=== PATIENT | male | born 1985 | race Two or more races ===

== ENCOUNTER 2019-02-03 17:04 | Inpatient (IN) | payer SELFPAY ==
[2019-02-03] VITALS (15 sets, daily range): BP systolic 55–93; BP diastolic 24–49
[~2019-02-03] VITALS: Ht 172.7 cm; Wt 87.1 kg
[2019-02-03] MEDS ORDERED: IV NORMAL SALINE 1000ML BAG 1,000 ML IV SCH (17:10)
--- NOTE | 2019-02-03 17:17 | PHYS DOC ---
Past Medical History Additional Information: unknown (LASHELL FAGAN APRN) Adult General HPI HPI Patient is a 33 year old male who presents to the ER with overdose. Patient was trying to commit suicide due to a divorce and custody garg that is ongoing. Per EMS brother witnessed the overdose and states that he took approximately 30 pills in half a bottle of NyQuil extra strength. The pills he took include hydroxyzine, lisinopril, carvedilol. This occurred approximately 1.5 hours ago. (LASHELL FAGAN APRN) Review of Systems Review of Systems Unable to obtain due to patient condition. (LASHELL FAGAN APRN) Current Medications Current Medications Current Medications Medications (Trade) Dose Ordered Sig/Pierre Start Time Stop Time Status Last Admin Dose Admin Calcium Gluconate (Calcium Gluconate) 1,000 mg 1X ONCE 02/03/19 18:45 02/03/19 18:46 DC 02/03/19 19:19 1,000 MG Dextrose (Dextrose 50%-Water Syringe) 100 gm 1X ONCE 02/03/19 18:30 02/03/19 18:31 DC 02/03/19 18:37 100 GM Dextrose/Sodium Chloride 1,000 ml @ 100 mls/hr 1X ONCE 02/03/19 18:45 02/04/19 04:44 02/03/19 19:41 100 MLS/HR Glucagon (Glucagen) 5 mg 1X ONCE 02/03/19 18:00 02/03/19 18:01 DC 02/03/19 18:02 5 MG Glucagon 5 mg/ Sodium Chloride 105 ml @ 100 mls/hr 1X ONCE 02/03/19 18:30 02/03/19 19:32 DC 02/03/19 18:30 100 MLS/HR Insulin Human Regular 150 ml @ 0 mls/hr 1X ONCE 02/03/19 18:30 02/03/19 18:31 DC 02/03/19 19:05 8 MLS/HR Insulin Human Regular (HumuLIN R VIAL) 83 unit 1X ONCE 02/03/19 18:30 02/03/19 18:31 DC 02/03/19 18:48 83 UNIT Naloxone HCl (Narcan) 0.4 mg 1X ONCE 02/03/19 18:45 02/03/19 18:46 DC Sodium Chloride 1,000 ml @ 1,000 mls/hr 1X ONCE 02/03/19 18:15 02/03/19 19:14 DC 02/03/19 18:16 1,000 MLS/HR (SHAMIR REESE MD) Allergies Allergies Allergies Coded Allergies Type Severity Reaction Last Updated Verified No Known Drug Allergies 02/03/19 No (SHAMIR REESE MD) Physical Exam Physical Exam Constitutional: acute distress, toxic appearance. [] HENT: Normocephalic, atraumatic, bilateral external ears normal, oropharynx moist, no oral exudates, nose normal. [] Eyes: PERRLA, EOMI, conjunctiva normal, no discharge. Pupils are 1 bilaterally. Neck: Normal range of motion, no tenderness, supple, no stridor. [] Cardiovascular:Heart rate regular rhythm, no murmur [] Lungs & Thorax: Bilateral breath sounds clear to auscultation [] Abdomen: Bowel sounds normal, soft, no tenderness, no masses, no pulsatile masses. [] Skin: Warm, dry, no erythema, no rash. [] Back: No tenderness, no CVA tenderness. [] Extremities: No tenderness, no cyanosis, no clubbing, ROM intact, no edema. [] Neurologic: GSC 14, lethargic Psychologic: Affect sleepy, judgement reduced (LASHELL FAGAN APRN) Current Patient Data Vital Signs Vital Signs Date Time Temp Pulse Resp B/P (MAP) Pulse Ox O2 Delivery O2 Flow Rate FiO2 02/03/19 17:05 98.1 59 14 83/48 (60) 97 Room Air 98.1 (SHAMIR REESE MD) Lab Values Laboratory Tests Test 02/03/19 17:10 02/03/19 17:25 02/03/19 17:59 02/03/19 18:38 White Blood Count 7.1 x10^3/uL (4.0-11.0) Red Blood Count 4.13 x10^6/uL (4.30-5.70) L Hemoglobin 12.7 g/dL (13.0-17.5) L Hematocrit 37.3 % (39.0-53.0) L Mean Corpuscular Volume 90 fL (79-100) Mean Corpuscular Hemoglobin 31 pg (25-35) Mean Corpuscular Hemoglobin Concent 34 g/dL (31-37) Red Cell Distribution Width 13.0 % (11.5-14.5) Platelet Count 197 x10^3/uL (140-400) Neutrophils (%) (Auto) 60 % (31-73) Lymphocytes (%) (Auto) 31 % (24-48) Monocytes (%) (Auto) 8 % (0-9) Eosinophils (%) (Auto) 1 % (0-3) Basophils (%) (Auto) 1 % (0-3) Neutrophils # (Auto) 4.2 x10^3uL (1.8-7.7) Lymphocytes # (Auto) 2.2 x10^3/uL (1.0-4.8) Monocytes # (Auto) 0.5 x10^3/uL (0.0-1.1) Eosinophils # (Auto) 0.1 x10^3/uL (0.0-0.7) Basophils # (Auto) 0.0 x10^3/uL (0.0-0.2) Prothrombin Time 14.2 SEC (11.7-14.0) H Prothrombin Time INR 1.1 (0.8-1.1) PTT 32 SEC (24-38) Sodium Level 140 mmol/L (136-145) Potassium Level 3.8 mmol/L (3.5-5.1) Chloride Level 106 mmol/L (98-107) Carbon Dioxide Level 23 mmol/L (21-32) Anion Gap 11 (6-14) Blood Urea Nitrogen 19 mg/dL (8-26) Creatinine 1.3 mg/dL (0.7-1.3) Estimated GFR (Cockcroft-Gault) 63.6 BUN/Creatinine Ratio 15 (6-20) Glucose Level 178 mg/dL (70-99) H Calcium Level 8.6 mg/dL (8.5-10.1) Magnesium Level 2.1 mg/dL (1.8-2.4) Total Bilirubin 0.8 mg/dL (0.2-1.0) Aspartate Amino Transferase (AST) 32 U/L (15-37) Alanine Aminotransferase (ALT) 28 U/L (16-63) Alkaline Phosphatase 52 U/L (46-116) Total Protein 6.6 g/dL (6.4-8.2) Albumin 3.9 g/dL (3.4-5.0) Albumin/Globulin Ratio 1.4 (1.0-1.7) Lipase 106 U/L (73-393) Salicylates Level < 2.8 mg/dL (2.8-20.0) L Salicylate Last Dose Date Unk Salicylate Last Dose Time Unk Acetaminophen Level 14.68 mcg/ml (10-30) Acetaminophen Last Dose Date Unk Acetaminophen Last Dose Time Unk Ethyl Alcohol Level < 10 mg/dL (0-10) Urine Color Yellow Urine Clarity Clear Urine pH 5.5 Urine Specific [place] >=1.030 Urine Protein Negative mg/dL (NEG-TRACE) Urine Glucose (UA) Negative mg/dL (NEG) Urine Ketones (Stick) >=80 mg/dL (NEG) Urine Blood Negative (NEG) Urine Nitrite Negative (NEG) Urine Bilirubin Small (NEG) Urine Urobilinogen Dipstick 0.2 mg/dL (0.2 mg/dL) Urine Leukocyte Esterase Negative (NEG) Urine RBC 0 /HPF (0-2) Urine WBC 1-4 /HPF (0-4) Urine Squamous Epithelial Cells Occ /LPF Urine Bacteria 0 /HPF (0-FEW) Urine Mucus Mod /LPF Urine Opiates Screen Neg (NEG) Urine Methadone Screen Neg (NEG) Urine Barbiturates Neg (NEG) Urine Phencyclidine Screen Neg (NEG) Urine Amphetamine/Methamphetamine Pos (NEG) Urine Benzodiazepines Screen Neg (NEG) Urine Cocaine Screen Neg (NEG) Urine Cannabinoids Screen Neg (NEG) Urine Ethyl Alcohol Neg (NEG) Glucose (Fingerstick) 143 mg/dL (70-99) H 159 mg/dL (70-99) H Test 02/03/19 18:52 Glucose (Fingerstick) 508 mg/dL (70-99) *H Laboratory Tests 02/03/19 17:10 Laboratory Tests 02/03/19 17:10 (SHAMIR REESE MD) Lab Values Laboratory Tests Test 02/03/19 17:10 02/03/19 17:25 02/03/19 17:59 White Blood Count 7.1 x10^3/uL (4.0-11.0) Red Blood Count 4.13 x10^6/uL (4.30-5.70) L Hemoglobin 12.7 g/dL (13.0-17.5) L Hematocrit 37.3 % (39.0-53.0) L Mean Corpuscular Volume 90 fL (79-100) Mean Corpuscular Hemoglobin 31 pg (25-35) Mean Corpuscular Hemoglobin Concent 34 g/dL (31-37) Red Cell Distribution Width 13.0 % (11.5-14.5) Platelet Count 197 x10^3/uL (140-400) Neutrophils (%) (Auto) 60 % (31-73) Lymphocytes (%) (Auto) 31 % (24-48) Monocytes (%) (Auto) 8 % (0-9) Eosinophils (%) (Auto) 1 % (0-3) Basophils (%) (Auto) 1 % (0-3) Neutrophils # (Auto) 4.2 x10^3uL (1.8-7.7) Lymphocytes # (Auto) 2.2 x10^3/uL (1.0-4.8) Monocytes # (Auto) 0.5 x10^3/uL (0.0-1.1) Eosinophils # (Auto) 0.1 x10^3/uL (0.0-0.7) Basophils # (Auto) 0.0 x10^3/uL (0.0-0.2) Prothrombin Time 14.2 SEC (11.7-14.0) H Prothrombin Time INR 1.1 (0.8-1.1) PTT 32 SEC (24-38) Sodium Level 140 mmol/L (136-145) Potassium Level 3.8 mmol/L (3.5-5.1) Chloride Level 106 mmol/L (98-107) Carbon Dioxide Level 23 mmol/L (21-32) Anion Gap 11 (6-14) Blood Urea Nitrogen 19 mg/dL (8-26) Creatinine 1.3 mg/dL (0.7-1.3) Estimated GFR (Cockcroft-Gault) 63.6 BUN/Creatinine Ratio 15 (6-20) Glucose Level 178 mg/dL (70-99) H Calcium Level 8.6 mg/dL (8.5-10.1) Magnesium Level 2.1 mg/dL (1.8-2.4) Total Bilirubin 0.8 mg/dL (0.2-1.0) Aspartate Amino Transferase (AST) 32 U/L (15-37) Alanine Aminotransferase (ALT) 28 U/L (16-63) Alkaline Phosphatase 52 U/L (46-116) Total Protein 6.6 g/dL (6.4-8.2) Albumin 3.9 g/dL (3.4-5.0) Albumin/Globulin Ratio 1.4 (1.0-1.7) Lipase 106 U/L (73-393) Salicylates Level < 2.8 mg/dL (2.8-20.0) L Salicylate Last Dose Date Unk Salicylate Last Dose Time Unk Acetaminophen Level 14.68 mcg/ml (10-30) Acetaminophen Last Dose Date Unk Acetaminophen Last Dose Time Unk Ethyl Alcohol Level < 10 mg/dL (0-10) Urine Color Yellow Urine Clarity Clear Urine pH 5.5 Urine Specific [place] >=1.030 Urine Protein Negative mg/dL (NEG-TRACE) Urine Glucose (UA) Negative mg/dL (NEG) Urine Ketones (Stick) >=80 mg/dL (NEG) Urine Blood Negative (NEG) Urine Nitrite Negative (NEG) Urine Bilirubin Small (NEG) Urine Urobilinogen Dipstick 0.2 mg/dL (0.2 mg/dL) Urine Leukocyte Esterase Negative (NEG) Urine RBC 0 /HPF (0-2) Urine WBC 1-4 /HPF (0-4) Urine Squamous Epithelial Cells Occ /LPF Urine Bacteria 0 /HPF (0-FEW) Urine Mucus Mod /LPF Urine Opiates Screen Neg (NEG) Urine Methadone Screen Neg (NEG) Urine Barbiturates Neg (NEG) Urine Phencyclidine Screen Neg (NEG) Urine Amphetamine/Methamphetamine Pos (NEG) Urine Benzodiazepines Screen Neg (NEG) Urine Cocaine Screen Neg (NEG) Urine Cannabinoids Screen Neg (NEG) Urine Ethyl Alcohol Neg (NEG) Glucose (Fingerstick) 143 mg/dL (70-99) H Laboratory Tests 02/03/19 17:10 Laboratory Tests 02/03/19 17:10 (LASHELL FAGAN APRN) EKG EKG EKG interpreted by Dr. Hines Sinus at 68, NO STEMI, QRS 90 ms QT's at 390 ms[] 2nd EKG interpreted by Dr. Reese Sinus at 65, NO STEMI, QRS 94 QTc at 459. (LASHELL FAGAN APRN) Radiology/Procedures Radiology/Procedures [] (LASHELL FAGAN APRN) Course & Med Decision Making Course & Med Decision Making Pertinent Labs and Imaging studies reviewed. (See chart for details) Will get labs, call poison control, gives fluids to treat hypotension. 1725: Called Poison Control and they are faxing recommendations. Will get Q4 hour tylenol and Q2 hour EKG. Per recommendation will order glucagon for hypotension. Glucagon did not improve blood pressure. Ordered glucagon drip and then insulin bolus as well as insulin drip. Also order Dextrose as well as D5 drip. Ordered Narcan and Calcium Gluconate. Patient blood pressure has improved from the low 70's systolic to high 80's patient is more alert with treatment. Talked to Dr. Brandon who agreed to admit to ICU. Critical care time of 2 hours. (LASHELL FAGAN APRN) Course & Med Decision Making 33 y/o M presents for overdose. I saw and evaluated the pt. His mental status has improved since arrival. BP has improved to 90 systolic with fluids, insulin, dextrose, calcium. Admit to ICU. (SHAMIR REESE MD) Dragon Disclaimer Dragon Disclaimer This electronic medical record was generated, in whole or in part, using a voice recognition dictation system. (LASHELL FAGAN APRN) Departure Departure Impression: Primary Impression: Overdose Additional Impression: Suicidal ideation Disposition: ADMITTED INPATIENT Admitting Physician: Other (pito) (LASHELL FAGAN APRN) Condition: CRITICAL Referrals: NON,STAFF (PCP) Problem Qualifiers Primary Impression: Overdose Encounter type: initial encounter Injury intent: intentional self-harm Qualified Codes: T50.902A - Poisoning by unspecified drugs, medicaments and biological substances, intentional self-harm, initial encounter LASHELL FAGAN APRN February 03, 2019 17:17 SHAMIR REESE MD February 03, 2019 21:00
[2019-02-03 17:19] LABS: BASO % 1 % (0-3); EOS # 0.1 x10^3/uL (0.0-0.7); EOS % 1 % (0-3); HEMATOCRIT 37.3 % (39.0-53.0); HEMOGLOBIN 12.7 g/dL (13.0-17.5); LYMPH # 2.2 x10^3/uL (1.0-4.8); LYMPH % 31 % (24-48); MEAN CORPUSCULAR HEMOGLOBIN 31 pg (25-35); MEAN CORPUSCULAR HGB CONC 34 g/dL (31-37); MEAN CORPUSCULAR VOLUME 90 fL (79-100); MONO # 0.5 x10^3/uL (0.0-1.1); MONO % 8 % (0-9); NEUT # 4.2 x10^3uL (1.8-7.7); NEUT % 60 % (31-73); PLATELET COUNT 197 x10^3/uL (140-400); RED BLOOD COUNT 4.13 x10^6/uL (4.30-5.70); WHITE BLOOD COUNT 7.1 x10^3/uL (4.0-11.0)
[2019-02-03 17:29] LABS: PROTHROMBIN TIME PATIENT 14.2 SEC (11.7-14.0)
[2019-02-03 17:31] LABS: CALCIUM 8.6 mg/dL (8.5-10.1); CREATININE 1.3 mg/dL (0.7-1.3); GFR 63.6; POTASSIUM 3.8 mmol/L (3.5-5.1)
[2019-02-03 17:35] LABS: ACETAMIN 14.68 mcg/ml (10-30); SALIC < 2.8 mg/dL (2.8-20.0)
[2019-02-03 17:36] LABS: ALBUMIN 3.9 g/dL (3.4-5.0); ALBUMIN/GLOBULIN RATIO 1.4 (1.0-1.7); MAGNESIUM 2.1 mg/dL (1.8-2.4); TOTAL BILIRUBIN 0.8 mg/dL (0.2-1.0); TOTAL PROTEIN 6.6 g/dL (6.4-8.2)
[2019-02-03] MEDS ORDERED: IV NORMAL SALINE 1000ML BAG 1,000 ML IV ONE ×4 (17:45→21:15)
[2019-02-03] MEDS ORDERED: GLUCAGON,HUMAN RECOMBINANT 1 MG/ML VIAL. IV ONE (18:00)
[2019-02-03] MEDS ORDERED: GLUCAGON HUMAN RECOMBINANT IM ONE (18:30)
[2019-02-03] MEDS ORDERED: INSULIN REGULAR 100 UNIT/ML 3ML VIAL. IV ONE (18:30)
[2019-02-03] MEDS ORDERED: NORMAL SALINE IM ONE (18:30)
[2019-02-03] MEDS ORDERED: NORMAL SALINE IV ONE (18:30)
[2019-02-03] MEDS ORDERED: DEXTROSE 50% 25 GM / 50ML DISP.SYRIN. IV ONE (18:30)
[2019-02-03] MEDS ORDERED: INSULIN,REGULAR 150 UNIT DRIP 150 ML IV ONE (18:30)
[2019-02-03] MEDS ORDERED: GLUCAGON HUMAN RECOMBINANT IV ONE (18:30)
[2019-02-03 18:38] LABS: BILIRUBIN,URINE SMALL (NEG); CLARITY,URINE CLEAR; COLOR,URINE YELLOW; NITRITE,URINE NEGATIVE (NEG); PH,URINE 5.5; PROTEIN,URINE NEGATIVE (NEG-TRACE); UROBILINOGEN,URINE 0.2 mg/dL (0.2 mg/dL)
[2019-02-03] MEDS ORDERED: CALCIUM GLUCONATE 1,000 MG/10 ML VIAL. IVP ONE (18:45)
[2019-02-03] MEDS ORDERED: NALOXONE 0.4 MG/ML VIAL. IV ONE (18:45)
[2019-02-03] MEDS ORDERED: IV DEXTROSE 5% - 0.9 % NACL 1,000 ML IV ONE (18:45)
[2019-02-03 18:53] LABS: BACTERIA,URINE 0 /HPF (0-FEW); RBC,URINE 0 /HPF (0-2); SQUAMOUS EPITHELIAL CELL,UR OCC /LPF
[2019-02-03 19:57] LABS: AMPHETAMINE/METHAMPHETAMINE POS (NEG); BARBITURATES NEG (NEG); BENZODIAZEPINES NEG (NEG); CANNABINOIDS NEG (NEG); COCAINE NEG (NEG); METHADONE NEG (NEG); OPIATES NEG (NEG); PHENCYCLIDINE NEG (NEG)
[2019-02-03 19:59] LABS: ACETAMIN 13.44 mcg/ml (10-30)
[2019-02-03] MEDS: DEXTROSE 50% 25 GM / 50ML DISP.SYRIN. IV PRN ×2 (21:29→22:55)
[2019-02-03] MEDS ORDERED: ALBUTEROL SULFATE 2.5 MG/3 ML NEBU. NEB PRN (21:30)
--- NOTE | 2019-02-03 21:33 | NUR ---
Pt.arrived to ICU via bed from ED w/ SI and drug overdose. He is A/O and will make needs known. Slightly agitated. Mom and sister @ BS.
--- NOTE | 2019-02-03 21:36 | NUR ---
Around 2114 pt had a glucose of 21. D50 given per protocol and it went up to [address] Brandon notified and gave new orders to stop insulin for 1 hr.
--- NOTE | 2019-02-03 22:02 | PDOC1 ---
History and Physical Date of Admission Date of Admission DATE: 02/03/19 TIME: 22:01 Identification/Chief Complaint Chief Complaint SEEN IN ICU Patient is a 33 year old male who presents to the ER with overdose. Patient was trying to commit suicide due to a divorce and custody garg that is ongoing. Per EMS brother witnessed the overdose and states that he took approximately 30 pills in half a bottle of NyQuil extra strength. The pills he took include hydroxyzine, lisinopril, carvedilol. This occurred approximately 3.5 hours AGO HE IS ADMITTED TO ICU ON PRESSORS, has hx meth abuse Past Medical History Cardiovascular: HTN GI: No pertinent hx Infectious disease: No pertinent hx Renal/: No pertinent hx Family History Family History: Hypertension Social History Smoke: <1 pack per day ALCOHOL: social Drugs: None, Crystal meth Current Medications Current Medications Current Medications Sodium Chloride 1,000 ml @ 100 mls/hr Q10H IV Last administered on 02/03/19at 17:12; Start 02/03/19 at 17:10; Stop 02/04/19 at 03:09 Sodium Chloride 1,000 ml @ 1,000 mls/hr 1X ONCE IV Last administered on 02/03/19at 18:02; Start 02/03/19 at 17:45; Stop 02/03/19 at 18:44; Status DC Glucagon (Glucagen) 5 mg 1X ONCE IV Last administered on 02/03/19at 18:02; Start 02/03/19 at 18:00; Stop 02/03/19 at 18:01; Status DC Sodium Chloride 1,000 ml @ 1,000 mls/hr 1X ONCE IV Last administered on 02/03/19at 18:03; Start 02/03/19 at 18:00; Stop 02/03/19 at 18:59; Status DC Sodium Chloride 1,000 ml @ 1,000 mls/hr 1X ONCE IV Last administered on 02/03/19at 18:16; Start 02/03/19 at 18:15; Stop 02/03/19 at 19:14; Status DC Glucagon 5 mg/ Sodium Chloride 105 ml @ 100 mls/hr 1X ONCE IM ; Start 02/03/19 at 18:30; Stop 02/03/19 at 19:32; Status Cancel Dextrose (Dextrose 50%-Water Syringe) 100 gm 1X ONCE IV Last administered on 02/03/19 18:37; Start 02/03/19 at 18:30; Stop 02/03/19 at 18:31; Status DC Insulin Human Regular (HumuLIN R VIAL) 83 unit 1X ONCE IV Last administered on 02/03/19 18:48; Start 02/03/19 at 18:30; Stop 02/03/19 at 18:31; Status DC Insulin Human Regular 150 ml @ 0 mls/hr 1X ONCE IV Last administered on 02/03/19at 19:05; Start 02/03/19 at 18:30; Stop 02/03/19 at 18:31; Status DC Glucagon 5 mg/ Sodium Chloride 105 ml @ 100 mls/hr 1X ONCE IV Last administered on 02/03/19 18:30; Start 02/03/19 at 18:30; Stop 02/03/19 at 19:32; Status DC Naloxone HCl (Narcan) 0.4 mg 1X ONCE IV ; Start 02/03/19 at 18:45; Stop 02/03/19 at 18:46; Status DC Calcium Gluconate (Calcium Gluconate) 1,000 mg 1X ONCE IVP Last administered on 02/03/19 19:19; Start 02/03/19 at 18:45; Stop 02/03/19 at 18:46; Status DC Dextrose/Sodium Chloride 1,000 ml @ 100 mls/hr 1X ONCE IV Last administered on 02/03/19at 19:41; Start 02/03/19 at 18:45; Stop 02/04/19 at 04:44 Sodium Chloride 1,000 ml @ 1,000 mls/hr 1X ONCE IV Last administered on 02/03/19at 21:29; Start 02/03/19 at 21:15; Stop 02/03/19 at 22:14 Dextrose (Dextrose 50%-Water Syringe) 12.5 gm PRN Q15MIN PRN IV SEE COMMENTS Last administered on 02/03/19at 21:29; Start 02/03/19 at 21:30 Albuterol Sulfate (Ventolin Neb Soln) 2.5 mg PRN Q4HRS PRN NEB BRADYCARDIA/HYPOTENSION Last administered on 02/03/19at 21:45; Start 02/03/19 at 21:30 Albuterol Sulfate (Ventolin Neb Soln) 2.5 mg Q4HRS NEB ; Start 02/04/19 at 22:00 Dopamine HCl/ Dextrose 250 ml @ 6.272 mls/ hr CONT PRN IV SEE I/O RECORD Last administered on 02/03/19at 21:56; Start 02/03/19 at 21:30 Allergies Allergies: Coded Allergies: No Known Drug Allergies (Unverified , 02/03/19) ROS Review of System UNABLE TO OBTAIN Neurological: Yes Confusion Physical Exam Physical Exam Physical Exam Physical Exam Constitutional: acute distress, toxic appearance. LETHARGIC [] HENT: Normocephalic, atraumatic, bilateral external ears normal, oropharynx moist, no oral exudates, nose normal. [] Eyes: PERRLA, EOMI, conjunctiva normal, no discharge. Pupils are 1 bilaterally. Neck: Normal range of motion, no tenderness, supple, no stridor. [] Cardiovascular:Heart rate regular rhythm, no murmur [] Lungs & Thorax: Bilateral breath sounds clear to auscultation [] Abdomen: Bowel sounds normal, soft, no tenderness, no masses, no pulsatile masses. [] Skin: Warm, dry, no erythema, no rash. [] Back: No tenderness, no CVA tenderness. [] Extremities: No tenderness, no cyanosis, no clubbing, ROM intact, no edema. [] Neurologic: GSC 14, lethargic Psychologic: Affect sleepy, HEENT: Atraumatic Heart: RRR Abdomen: Normal bowel sounds, Soft Rectal Exam: not examined Extremities: No clubbing, No cyanosis, No edema Skin: No rashes, No breakdown Neuro: Cranial nerves 3-12 NL Vitals Vitals Vital Signs Date Time Temp Pulse Resp B/P (MAP) Pulse Ox O2 Delivery O2 Flow Rate FiO2 02/03/19 21:45 95 Room Air 02/03/19 17:05 98.1 59 14 83/48 (60) 98.1 Labs Labs Laboratory Tests Test 02/03/19 17:10 02/03/19 17:25 02/03/19 17:59 02/03/19 18:38 White Blood Count 7.1 x10^3/uL (4.0-11.0) Red Blood Count 4.13 x10^6/uL (4.30-5.70) Hemoglobin 12.7 g/dL (13.0-17.5) Hematocrit 37.3 % (39.0-53.0) Mean Corpuscular Volume 90 fL (79-100) Mean Corpuscular Hemoglobin 31 pg (25-35) Mean Corpuscular Hemoglobin Concent 34 g/dL (31-37) Red Cell Distribution Width 13.0 % (11.5-14.5) Platelet Count 197 x10^3/uL (140-400) Neutrophils (%) (Auto) 60 % (31-73) Lymphocytes (%) (Auto) 31 % (24-48) Monocytes (%) (Auto) 8 % (0-9) Eosinophils (%) (Auto) 1 % (0-3) Basophils (%) (Auto) 1 % (0-3) Neutrophils # (Auto) 4.2 x10^3uL (1.8-7.7) Lymphocytes # (Auto) 2.2 x10^3/uL (1.0-4.8) Monocytes # (Auto) 0.5 x10^3/uL (0.0-1.1) Eosinophils # (Auto) 0.1 x10^3/uL (0.0-0.7) Basophils # (Auto) 0.0 x10^3/uL (0.0-0.2) Prothrombin Time 14.2 SEC (11.7-14.0) Prothromb Time International Ratio 1.1 (0.8-1.1) Activated Partial Thromboplast Time 32 SEC (24-38) Sodium Level 140 mmol/L (136-145) Potassium Level 3.8 mmol/L (3.5-5.1) Chloride Level 106 mmol/L (98-107) Carbon Dioxide Level 23 mmol/L (21-32) Anion Gap 11 (6-14) Blood Urea Nitrogen 19 mg/dL (8-26) Creatinine 1.3 mg/dL (0.7-1.3) Estimated GFR (Cockcroft-Gault) 63.6 BUN/Creatinine Ratio 15 (6-20) Glucose Level 178 mg/dL (70-99) Calcium Level 8.6 mg/dL (8.5-10.1) Magnesium Level 2.1 mg/dL (1.8-2.4) Total Bilirubin 0.8 mg/dL (0.2-1.0) Aspartate Amino Transf (AST/SGOT) 32 U/L (15-37) Alanine Aminotransferase (ALT/SGPT) 28 U/L (16-63) Alkaline Phosphatase 52 U/L (46-116) Total Protein 6.6 g/dL (6.4-8.2) Albumin 3.9 g/dL (3.4-5.0) Albumin/Globulin Ratio 1.4 (1.0-1.7) Lipase 106 U/L (73-393) Salicylates Level < 2.8 mg/dL (2.8-20.0) Salicylate Last Dose Date Unk Salicylate Last Dose Time Unk Acetaminophen Level 14.68 mcg/ml (10-30) Acetaminophen Last Dose Date Unk Acetaminophen Last Dose Time Unk Ethyl Alcohol Level < 10 mg/dL (0-10) Urine Color Yellow Urine Clarity Clear Urine pH 5.5 Urine Specific [place] >=1.030 Urine Protein Negative mg/dL (NEG-TRACE) Urine Glucose (UA) Negative mg/dL (NEG) Urine Ketones (Stick) >=80 mg/dL (NEG) Urine Blood Negative (NEG) Urine Nitrite Negative (NEG) Urine Bilirubin Small (NEG) Urine Urobilinogen Dipstick 0.2 mg/dL (0.2 mg/dL) Urine Leukocyte Esterase Negative (NEG) Urine RBC 0 /HPF (0-2) Urine WBC 1-4 /HPF (0-4) Urine Squamous Epithelial Cells Occ /LPF Urine Bacteria 0 /HPF (0-FEW) Urine Mucus Mod /LPF Urine Opiates Screen Neg (NEG) Urine Methadone Screen Neg (NEG) Urine Barbiturates Neg (NEG) Urine Phencyclidine Screen Neg (NEG) Urine Amphetamine/Methamphetamine Pos (NEG) Urine Benzodiazepines Screen Neg (NEG) Urine Cocaine Screen Neg (NEG) Urine Cannabinoids Screen Neg (NEG) Urine Ethyl Alcohol Neg (NEG) Glucose (Fingerstick) 143 mg/dL (70-99) 159 mg/dL (70-99) Test 02/03/19 18:52 02/03/19 19:25 02/03/19 19:40 Glucose (Fingerstick) 508 mg/dL (70-99) 123 mg/dL (70-99) Acetaminophen Level 13.44 mcg/ml (10-30) Acetaminophen Last Dose Date Acetaminophen Last Dose Time Laboratory Tests Test 02/03/19 17:10 02/03/19 17:25 02/03/19 17:59 02/03/19 18:38 White Blood Count 7.1 x10^3/uL (4.0-11.0) Red Blood Count 4.13 x10^6/uL (4.30-5.70) Hemoglobin 12.7 g/dL (13.0-17.5) Hematocrit 37.3 % (39.0-53.0) Mean Corpuscular Volume 90 fL (79-100) Mean Corpuscular Hemoglobin 31 pg (25-35) Mean Corpuscular Hemoglobin Concent 34 g/dL (31-37) Red Cell Distribution Width 13.0 % (11.5-14.5) Platelet Count 197 x10^3/uL (140-400) Neutrophils (%) (Auto) 60 % (31-73) Lymphocytes (%) (Auto) 31 % (24-48) Monocytes (%) (Auto) 8 % (0-9) Eosinophils (%) (Auto) 1 % (0-3) Basophils (%) (Auto) 1 % (0-3) Neutrophils # (Auto) 4.2 x10^3uL (1.8-7.7) Lymphocytes # (Auto) 2.2 x10^3/uL (1.0-4.8) Monocytes # (Auto) 0.5 x10^3/uL (0.0-1.1) Eosinophils # (Auto) 0.1 x10^3/uL (0.0-0.7) Basophils # (Auto) 0.0 x10^3/uL (0.0-0.2) Prothrombin Time 14.2 SEC (11.7-14.0) Prothromb Time International Ratio 1.1 (0.8-1.1) Activated Partial Thromboplast Time 32 SEC (24-38) Sodium Level 140 mmol/L (136-145) Potassium Level 3.8 mmol/L (3.5-5.1) Chloride Level 106 mmol/L (98-107) Carbon Dioxide Level 23 mmol/L (21-32) Anion Gap 11 (6-14) Blood Urea Nitrogen 19 mg/dL (8-26) Creatinine 1.3 mg/dL (0.7-1.3) Estimated GFR (Cockcroft-Gault) 63.6 BUN/Creatinine Ratio 15 (6-20) Glucose Level 178 mg/dL (70-99) Calcium Level 8.6 mg/dL (8.5-10.1) Magnesium Level 2.1 mg/dL (1.8-2.4) Total Bilirubin 0.8 mg/dL (0.2-1.0) Aspartate Amino Transf (AST/SGOT) 32 U/L (15-37) Alanine Aminotransferase (ALT/SGPT) 28 U/L (16-63) Alkaline Phosphatase 52 U/L (46-116) Total Protein 6.6 g/dL (6.4-8.2) Albumin 3.9 g/dL (3.4-5.0) Albumin/Globulin Ratio 1.4 (1.0-1.7) Lipase 106 U/L (73-393) Salicylates Level < 2.8 mg/dL (2.8-20.0) Salicylate Last Dose Date Unk Salicylate Last Dose Time Unk Acetaminophen Level 14.68 mcg/ml (10-30) Acetaminophen Last Dose Date Unk Acetaminophen Last Dose Time Unk Ethyl Alcohol Level < 10 mg/dL (0-10) Urine Color Yellow Urine Clarity Clear Urine pH 5.5 Urine Specific [place] >=1.030 Urine Protein Negative mg/dL (NEG-TRACE) Urine Glucose (UA) Negative mg/dL (NEG) Urine Ketones (Stick) >=80 mg/dL (NEG) Urine Blood Negative (NEG) Urine Nitrite Negative (NEG) Urine Bilirubin Small (NEG) Urine Urobilinogen Dipstick 0.2 mg/dL (0.2 mg/dL) Urine Leukocyte Esterase Negative (NEG) Urine RBC 0 /HPF (0-2) Urine WBC 1-4 /HPF (0-4) Urine Squamous Epithelial Cells Occ /LPF Urine Bacteria 0 /HPF (0-FEW) Urine Mucus Mod /LPF Urine Opiates Screen Neg (NEG) Urine Methadone Screen Neg (NEG) Urine Barbiturates Neg (NEG) Urine Phencyclidine Screen Neg (NEG) Urine Amphetamine/Methamphetamine Pos (NEG) Urine Benzodiazepines Screen Neg (NEG) Urine Cocaine Screen Neg (NEG) Urine Cannabinoids Screen Neg (NEG) Urine Ethyl Alcohol Neg (NEG) Glucose (Fingerstick) 143 mg/dL (70-99) 159 mg/dL (70-99) Test 02/03/19 18:52 02/03/19 19:25 02/03/19 19:40 Glucose (Fingerstick) 508 mg/dL (70-99) 123 mg/dL (70-99) Acetaminophen Level 13.44 mcg/ml (10-30) Acetaminophen Last Dose Date Acetaminophen Last Dose Time VTE Prophylaxis Ordered VTE Prophylaxis Devices: Yes VTE Pharmacological Prophylaxi: Yes Assessment/Plan Assessment/Plan IMPRESSION 1. SUICIDE ATTEMPT 2. OVERDOSE, LIFE THREATENING, POOR PROGNOSIS 3. Acute toxic encephalopathy 4. acute shock, med induced 5. major depression 6. severe social stress 7. meth abuse PLAN ADMIT ICU BED TITRATE DOPAMINE DRIP, maintain bp > 90 CONTACTED POISON CONTROL, REC FOLLOWED CONSULT NEUROLOGY CONSULT CARDIOLOGY SERIAL TROPONIN I ECHO FLUID BOLUSES ART LINE, CENTRAL LINE STAT 115 MIN CC TIME DASH VILLEDA MD February 03, 2019 22:02
[2019-02-03] MEDS: ALBUTEROL SULFATE 2.5 MG/3 ML NEBU. NEB SCH (22:55)
[2019-02-03] MEDS ORDERED: IV DEXTROSE 10% 1,000 ML IV SCH (23:00)
[2019-02-03] MEDS ORDERED: VASOPRESSIN 40 UNIT in IV DEXTROSE 5% 100ML 100 ML IV PRN (23:00)
[2019-02-03] MEDS ORDERED: PHENYLEPHRINE INJ 20 MG in IV NORMAL SALINE 250ML 250 ML IV ONE (23:30)
[2019-02-04] VITALS (31 sets, daily range): BP systolic 92–174; BP diastolic 48–98
--- NOTE | 2019-02-04 00:02 | PDOC ---
Date and Time Called for central line and arterial line. Beta christiane overdose. HR 50 BP 70/40 unresponsive. On dopamine, vasopressin and phenylephrine. Given Glycopyrrolate with HR increase to 60's BP to 85/55. Epinephrine infusion started at 4mcg/min, phenylephrine weaned. Right External jugular 3 lumen cath placed. Mask,gown,gloves,large drape,chlorasept prep. Sutured at 17cm, biopatch and sterile dressing. Free flow all 3 ports, flushed. 20g R radial arterial line placed, sterile technique and dressing. Portable CXR- EJ line in Superior vena cava. Currently 106/65 HR 68 SpO2 100% Current Medications Current Medications Sodium Chloride 1,000 ml @ 100 mls/hr Q10H IV Last administered on 02/03/19 17:12; Start 02/03/19 at 17:10; Stop 02/04/19 at 03:09 Sodium Chloride 1,000 ml @ 1,000 mls/hr 1X ONCE IV Last administered on 02/03/19 18:02; Start 02/03/19 at 17:45; Stop 02/03/19 at 18:44; Status DC Glucagon (Glucagen) 5 mg 1X ONCE IV Last administered on 02/03/19 18:02; Start 02/03/19 at 18:00; Stop 02/03/19 at 18:01; Status DC Sodium Chloride 1,000 ml @ 1,000 mls/hr 1X ONCE IV Last administered on 02/03/19 18:03; Start 02/03/19 at 18:00; Stop 02/03/19 at 18:59; Status DC Sodium Chloride 1,000 ml @ 1,000 mls/hr 1X ONCE IV Last administered on 02/03/19at 18:16; Start 02/03/19 at 18:15; Stop 02/03/19 at 19:14; Status DC Glucagon 5 mg/ Sodium Chloride 105 ml @ 100 mls/hr 1X ONCE IM ; Start 02/03/19 at 18:30; Stop 02/03/19 at 19:32; Status Cancel Dextrose (Dextrose 50%-Water Syringe) 100 gm 1X ONCE IV Last administered on 02/03/19at 18:37; Start 02/03/19 at 18:30; Stop 02/03/19 at 18:31; Status DC Insulin Human Regular (HumuLIN R VIAL) 83 unit 1X ONCE IV Last administered on 02/03/19at 18:48; Start 02/03/19 at 18:30; Stop 02/03/19 at 18:31; Status DC Insulin Human Regular 150 ml @ 0 mls/hr 1X ONCE IV Last administered on 02/03/19at 19:05; Start 02/03/19 at 18:30; Stop 02/03/19 at 18:31; Status DC Glucagon 5 mg/ Sodium Chloride 105 ml @ 100 mls/hr 1X ONCE IV Last administered on 02/03/19at 18:30; Start 02/03/19 at 18:30; Stop 02/03/19 at 19:32; Status DC Naloxone HCl (Narcan) 0.4 mg 1X ONCE IV ; Start 02/03/19 at 18:45; Stop 02/03/19 at 18:46; Status DC Calcium Gluconate (Calcium Gluconate) 1,000 mg 1X ONCE IVP Last administered on 02/03/19at 19:19; Start 02/03/19 at 18:45; Stop 02/03/19 at 18:46; Status DC Dextrose/Sodium Chloride 1,000 ml @ 100 mls/hr 1X ONCE IV Last administered on 02/03/19at 19:41; Start 02/03/19 at 18:45; Stop 02/04/19 at 04:44 Sodium Chloride 1,000 ml @ 1,000 mls/hr 1X ONCE IV Last administered on 02/03/19at 21:29; Start 02/03/19 at 21:15; Stop 02/03/19 at 22:14; Status DC Dextrose (Dextrose 50%-Water Syringe) 12.5 gm PRN Q15MIN PRN IV SEE COMMENTS Last administered on 02/03/19at 22:55; Start 02/03/19 at 21:30 Albuterol Sulfate (Ventolin Neb Soln) 2.5 mg PRN Q4HRS PRN NEB BRADYCARDIA/HYPOTENSION Last administered on 02/03/19at 21:45; Start 02/03/19 at 21:30 Albuterol Sulfate (Ventolin Neb Soln) 2.5 mg Q4HRS NEB ; Start 02/04/19 at 22:00 Dopamine HCl/ Dextrose 250 ml @ 6.272 mls/ hr CONT PRN IV SEE I/O RECORD Last administered on 02/03/19at 21:56; Start 02/03/19 at 21:30 Dextrose 1,000 ml @ 80 mls/hr [id number] IV Last administered on 02/03/19at 23:15; Start 02/03/19 at 23:00 Vasopressin 40 unit/Dextrose 102 ml @ 6 mls/hr CONT PRN IV SEE I/O RECORD Last administered on 02/03/19at 23:10; Start 02/03/19 at 23:00 Phenylephrine HCl 20 mg/Sodium Chloride 252 ml @ 22.68 mls/ hr 1X ONCE IV Last administered on 02/03/19at 23:11; Start 02/03/19 at 23:30; Stop 02/04/19 at 10:36 Epinephrine HCl 4 mg/Sodium Chloride 254 ml @ 31.86 mls/ hr CONT PRN IV SEE I/O RECORD; Start 02/03/19 at 23:30 Pertinent Labs/Test Laboratory Tests Test 02/03/19 17:10 02/03/19 17:25 02/03/19 17:59 02/03/19 18:38 White Blood Count 7.1 x10^3/uL (4.0-11.0) Red Blood Count 4.13 x10^6/uL (4.30-5.70) Hemoglobin 12.7 g/dL (13.0-17.5) Hematocrit 37.3 % (39.0-53.0) Mean Corpuscular Volume 90 fL (79-100) Mean Corpuscular Hemoglobin 31 pg (25-35) Mean Corpuscular Hemoglobin Concent 34 g/dL (31-37) Red Cell Distribution Width 13.0 % (11.5-14.5) Platelet Count 197 x10^3/uL (140-400) Neutrophils (%) (Auto) 60 % (31-73) Lymphocytes (%) (Auto) 31 % (24-48) Monocytes (%) (Auto) 8 % (0-9) Eosinophils (%) (Auto) 1 % (0-3) Basophils (%) (Auto) 1 % (0-3) Neutrophils # (Auto) 4.2 x10^3uL (1.8-7.7) Lymphocytes # (Auto) 2.2 x10^3/uL (1.0-4.8) Monocytes # (Auto) 0.5 x10^3/uL (0.0-1.1) Eosinophils # (Auto) 0.1 x10^3/uL (0.0-0.7) Basophils # (Auto) 0.0 x10^3/uL (0.0-0.2) Prothrombin Time 14.2 SEC (11.7-14.0) Prothromb Time International Ratio 1.1 (0.8-1.1) Activated Partial Thromboplast Time 32 SEC (24-38) Sodium Level 140 mmol/L (136-145) Potassium Level 3.8 mmol/L (3.5-5.1) Chloride Level 106 mmol/L (98-107) Carbon Dioxide Level 23 mmol/L (21-32) Anion Gap 11 (6-14) Blood Urea Nitrogen 19 mg/dL (8-26) Creatinine 1.3 mg/dL (0.7-1.3) Estimated GFR (Cockcroft-Gault) 63.6 BUN/Creatinine Ratio 15 (6-20) Glucose Level 178 mg/dL (70-99) Calcium Level 8.6 mg/dL (8.5-10.1) Magnesium Level 2.1 mg/dL (1.8-2.4) Total Bilirubin 0.8 mg/dL (0.2-1.0) Aspartate Amino Transf (AST/SGOT) 32 U/L (15-37) Alanine Aminotransferase (ALT/SGPT) 28 U/L (16-63) Alkaline Phosphatase 52 U/L (46-116) Total Protein 6.6 g/dL (6.4-8.2) Albumin 3.9 g/dL (3.4-5.0) Albumin/Globulin Ratio 1.4 (1.0-1.7) Lipase 106 U/L (73-393) Salicylates Level < 2.8 mg/dL (2.8-20.0) Salicylate Last Dose Date Unk Salicylate Last Dose Time Unk Acetaminophen Level 14.68 mcg/ml (10-30) Acetaminophen Last Dose Date Unk Acetaminophen Last Dose Time Unk Ethyl Alcohol Level < 10 mg/dL (0-10) Urine Color Yellow Urine Clarity Clear Urine pH 5.5 Urine Specific [place] >=1.030 Urine Protein Negative mg/dL (NEG-TRACE) Urine Glucose (UA) Negative mg/dL (NEG) Urine Ketones (Stick) >=80 mg/dL (NEG) Urine Blood Negative (NEG) Urine Nitrite Negative (NEG) Urine Bilirubin Small (NEG) Urine Urobilinogen Dipstick 0.2 mg/dL (0.2 mg/dL) Urine Leukocyte Esterase Negative (NEG) Urine RBC 0 /HPF (0-2) Urine WBC 1-4 /HPF (0-4) Urine Squamous Epithelial Cells Occ /LPF Urine Bacteria 0 /HPF (0-FEW) Urine Mucus Mod /LPF Urine Opiates Screen Neg (NEG) Urine Methadone Screen Neg (NEG) Urine Barbiturates Neg (NEG) Urine Phencyclidine Screen Neg (NEG) Urine Amphetamine/Methamphetamine Pos (NEG) Urine Benzodiazepines Screen Neg (NEG) Urine Cocaine Screen Neg (NEG) Urine Cannabinoids Screen Neg (NEG) Urine Ethyl Alcohol Neg (NEG) Glucose (Fingerstick) 143 mg/dL (70-99) 159 mg/dL (70-99) Test 02/03/19 18:52 02/03/19 19:25 02/03/19 19:40 02/03/19 21:40 Glucose (Fingerstick) 508 mg/dL (70-99) 123 mg/dL (70-99) Acetaminophen Level 13.44 mcg/ml (10-30) Acetaminophen Last Dose Date Acetaminophen Last Dose Time Glucose Level 83 mg/dL (70-99) Laboratory Tests Test 02/03/19 17:10 02/03/19 17:25 02/03/19 17:59 02/03/19 18:38 White Blood Count 7.1 x10^3/uL (4.0-11.0) Red Blood Count 4.13 x10^6/uL (4.30-5.70) Hemoglobin 12.7 g/dL (13.0-17.5) Hematocrit 37.3 % (39.0-53.0) Mean Corpuscular Volume 90 fL (79-100) Mean Corpuscular Hemoglobin 31 pg (25-35) Mean Corpuscular Hemoglobin Concent 34 g/dL (31-37) Red Cell Distribution Width 13.0 % (11.5-14.5) Platelet Count 197 x10^3/uL (140-400) Neutrophils (%) (Auto) 60 % (31-73) Lymphocytes (%) (Auto) 31 % (24-48) Monocytes (%) (Auto) 8 % (0-9) Eosinophils (%) (Auto) 1 % (0-3) Basophils (%) (Auto) 1 % (0-3) Neutrophils # (Auto) 4.2 x10^3uL (1.8-7.7) Lymphocytes # (Auto) 2.2 x10^3/uL (1.0-4.8) Monocytes # (Auto) 0.5 x10^3/uL (0.0-1.1) Eosinophils # (Auto) 0.1 x10^3/uL (0.0-0.7) Basophils # (Auto) 0.0 x10^3/uL (0.0-0.2) Prothrombin Time 14.2 SEC (11.7-14.0) Prothromb Time International Ratio 1.1 (0.8-1.1) Activated Partial Thromboplast Time 32 SEC (24-38) Sodium Level 140 mmol/L (136-145) Potassium Level 3.8 mmol/L (3.5-5.1) Chloride Level 106 mmol/L (98-107) Carbon Dioxide Level 23 mmol/L (21-32) Anion Gap 11 (6-14) Blood Urea Nitrogen 19 mg/dL (8-26) Creatinine 1.3 mg/dL (0.7-1.3) Estimated GFR (Cockcroft-Gault) 63.6 BUN/Creatinine Ratio 15 (6-20) Glucose Level 178 mg/dL (70-99) Calcium Level 8.6 mg/dL (8.5-10.1) Magnesium Level 2.1 mg/dL (1.8-2.4) Total Bilirubin 0.8 mg/dL (0.2-1.0) Aspartate Amino Transf (AST/SGOT) 32 U/L (15-37) Alanine Aminotransferase (ALT/SGPT) 28 U/L (16-63) Alkaline Phosphatase 52 U/L (46-116) Total Protein 6.6 g/dL (6.4-8.2) Albumin 3.9 g/dL (3.4-5.0) Albumin/Globulin Ratio 1.4 (1.0-1.7) Lipase 106 U/L (73-393) Salicylates Level < 2.8 mg/dL (2.8-20.0) Salicylate Last Dose Date Unk Salicylate Last Dose Time Unk Acetaminophen Level 14.68 mcg/ml (10-30) Acetaminophen Last Dose Date Unk Acetaminophen Last Dose Time Unk Ethyl Alcohol Level < 10 mg/dL (0-10) Urine Color Yellow Urine Clarity Clear Urine pH 5.5 Urine Specific [place] >=1.030 Urine Protein Negative mg/dL (NEG-TRACE) Urine Glucose (UA) Negative mg/dL (NEG) Urine Ketones (Stick) >=80 mg/dL (NEG) Urine Blood Negative (NEG) Urine Nitrite Negative (NEG) Urine Bilirubin Small (NEG) Urine Urobilinogen Dipstick 0.2 mg/dL (0.2 mg/dL) Urine Leukocyte Esterase Negative (NEG) Urine RBC 0 /HPF (0-2) Urine WBC 1-4 /HPF (0-4) Urine Squamous Epithelial Cells Occ /LPF Urine Bacteria 0 /HPF (0-FEW) Urine Mucus Mod /LPF Urine Opiates Screen Neg (NEG) Urine Methadone Screen Neg (NEG) Urine Barbiturates Neg (NEG) Urine Phencyclidine Screen Neg (NEG) Urine Amphetamine/Methamphetamine Pos (NEG) Urine Benzodiazepines Screen Neg (NEG) Urine Cocaine Screen Neg (NEG) Urine Cannabinoids Screen Neg (NEG) Urine Ethyl Alcohol Neg (NEG) Glucose (Fingerstick) 143 mg/dL (70-99) 159 mg/dL (70-99) Test 02/03/19 18:52 02/03/19 19:25 02/03/19 19:40 02/03/19 21:40 Glucose (Fingerstick) 508 mg/dL (70-99) 123 mg/dL (70-99) Acetaminophen Level 13.44 mcg/ml (10-30) Acetaminophen Last Dose Date Acetaminophen Last Dose Time Glucose Level 83 mg/dL (70-99) LAST VITALS Vital Signs Date Time Temp Pulse Resp B/P (MAP) Pulse Ox O2 Delivery O2 Flow Rate FiO2 02/03/19 21:45 95 Room Air 02/03/19 17:05 98.1 59 14 83/48 (60) 98.1 CHRISTO DOOLEY MD February 04, 2019 00:02
[2019-02-04] MEDS: DEXTROSE 50% 25 GM / 50ML DISP.SYRIN. IV PRN ×2 (00:05→01:26)
--- NOTE | 2019-02-04 00:10 | RAD ---
AP chest. HISTORY: Central line placement AP view was taken of the chest. There is a right central line which extends to the brachiocephalic vein. There is no pneumothorax. Heart is normal in size. There is no effusion. There is mild haziness from atelectasis or infiltrate in the right lung base. IMPRESSION: 1. Central line or PICC line extends to the brachiocephalic vein. 2. Heart is normal in size. 3. Mild hazy right basilar atelectasis or infiltrates. Electronically signed by: Patrick Hdz MD (02/04/2019 12:07 AM) [facility]
--- NOTE | 2019-02-04 00:21 | NUR ---
At 2235 pt. had a critical BS of 18 D50 given and it went up to 84. on the floor and I notified him. Around 0005 pt had a BS of [address] Brandon notified again. BS went up to 80
[2019-02-04] MEDS: ALBUTEROL SULFATE 2.5 MG/3 ML NEBU. NEB SCH ×5 (02:30→14:03)
--- NOTE | 2019-02-04 07:19 | NUR ---
Left msg on 's voicemail about consult.
[2019-02-04] MEDS ORDERED: IV DEXTROSE 5% 1,000 ML IV SCH (08:30)
--- NOTE | 2019-02-04 09:02 | CONS ---
DATE OF CONSULTATION: 02/04/2019 REASON FOR CONSULTATION: Hypotension. HISTORY OF PRESENT ILLNESS: The patient is a pleasant 33-year-old man who unfortunately apparently was going through a divorce at home and decided to kill himself. He overdosed on drugs including methamphetamine and also took apparently several pills of NyQuil and carvedilol. Cardiology was asked to comment on his hypotension. This morning, he is arousable and alert. He denies any chest pain. He has never had any prior cardiac issues. No prior dyspnea. PAST MEDICAL HISTORY: None. SOCIAL HISTORY: The patient is apparently going through a divorce and a custody garg with his children. He reports smoking and using drugs. He also endorses currently that he did not have any suicidal ideations at this time. FAMILY HISTORY: Noncontributory. REVIEW OF SYSTEMS: As noted above in the HPI. ALLERGIES: No known drug allergies. CURRENT CARDIOVASCULAR MEDICATIONS: 1. Epinephrine drip. 2. Dopamine drip. PHYSICAL EXAMINATION: VITAL SIGNS: Afebrile, 41, 12, 156/83, 96% on room air. GENERAL: He is alert and responds appropriately. HEAD AND NECK: Unremarkable. CARDIAC: Bradycardic without any obvious murmurs, rubs or gallops. LUNGS: Clear to auscultation anteriorly. ABDOMEN: Soft, nontender and nondistended. EXTREMITIES: No clubbing, cyanosis or edema. NEUROLOGIC: No focal deficits. MUSCULOSKELETAL: No trauma. DIAGNOSTIC STUDIES: Hemoglobin is within normal limits. Platelets are 197. Creatinine is at 1.3 with INR that is at 1.1. His urine toxicology revealed positive for amphetamines. Chest x-ray is unremarkable. EKG did not demonstrate any acute pathology for ischemia. There was junctional rhythm. IMPRESSION: 1. Beta christiane and other drug overdose as noted above. 2. Hypotension secondary to #1. RECOMMENDATIONS: Continue supportive care with vasopressor therapy. Likely this will dissipate over the next 24 to 48 hours. We will need close monitoring. Continue recommendations per Poison Control. Thank you for this consultation. Please call with any further questions. ERIC CASTILLO MD DR: SYDNIE/teetee JOB#: [id number] / [id number]
[2019-02-04] MEDS ORDERED: PIP/TAZO PER PHARMACY MC PRN (10:00)
--- NOTE | 2019-02-04 10:13 | PDOC ---
Provider Note Provider Note [id number] abnl cxr no aspiration hypotension cont the same ROXY DEVINE MD February 04, 2019 10:13
--- NOTE | 2019-02-04 10:40 | CONS ---
DATE OF CONSULTATION: 02/04/2019 REASON FOR CONSULTATION: I was asked to see this 33-year-old gentleman for possible aspiration. HISTORY OF PRESENT ILLNESS: He does smoke. He drinks occasionally. He is going through a divorce. He took several pills, including Coreg, hydralazine and NyQuil. Cardiology was consulted. He was bradycardic and hypotensive. He has an art line in place. He was on epinephrine and dopamine drip. Dopamine is stopped. His heart rate is 52 now. He is alert. His blood pressure is 135/65. He denies shortness of breath or cough. There are no episodes of aspiration noted. PAST MEDICAL HISTORY: None. SOCIAL HISTORY: He does smoke, drinks alcohol. He is using drugs per chart. FAMILY HISTORY: Hypertension. ALLERGIES: No known drug allergies. MEDICATIONS: Currently, he is on DuoNebs, Zosyn and epinephrine drip. REVIEW OF SYSTEMS: As mentioned as above, other systems otherwise negative. PHYSICAL EXAMINATION: GENERAL: This is a well-developed gentleman. VITAL SIGNS: His O2 saturation on room air is 97%, respiratory rate 18, heart rate 52, blood pressure 135/68 and temperature 97.2. HEENT: Normocephalic, atraumatic. Pupils equal, round and reactive to light. Throat is clear. Nose is clear. NECK: There is no JVD, lymphadenopathy or thyromegaly. CARDIOVASCULAR: Regular rate and rhythm. PMI is not displaced. CHEST: Inspection is normal. LUNGS: Clear to auscultation. There is no wheezing. ABDOMEN: Soft. Bowel sounds are good. There is no mass. EXTREMITIES: There is no edema. LYMPHATICS: There is no lymphadenopathy. NEUROLOGIC: Alert and oriented. SKIN: Warm. LABORATORY DATA: I reviewed the following lab data: Chest x-ray, there might be minimal atelectasis on the right, no infiltrates. WBC 7.1, hemoglobin 12.7 and platelets 197,000. Sodium 140, potassium 3.8, chloride 106, CO2 of 23, glucose 183, BUN 19 and creatinine 1.3. His urine drug screen is positive for amphetamine, negative for alcohol and salicylate or acetaminophen. INR is 1.1. IMPRESSION: 1. Abnormal chest x-ray, probably atelectasis 2. Hypotension, Bradycardia 3. Drug Overdose AND PLAN: 1. There is no sign of aspiration. The patient is alert and oriented. 2. Continue epinephrine drip per Cardiology. 3. Monitor in ICU. 4. He would require Psych consult. 5. Advised to quit smoking and using drugs. 6. Elevate head of bed. 7. Titrate FiO2 to keep O2 saturation 92%. 8. Continue bronchodilator. Thank you very much for allowing me to participate in the care of this very nice gentleman. I have discussed the findings and recommendations with RN and the patient. ROXY DEVINE M.D. DR: Billy JOB#: [id number] / [id number] MAUDE
[2019-02-04] MEDS ORDERED: PIPERACILLIN/TAZOBACTAM 3.375 GM in IV NORMAL SALINE 50ML 50 ML IV SCH (11:00)
--- NOTE | 2019-02-04 11:10 | PDOC ---
[employer] PROGRESS NOTE Chief Complaint Chief Complaint Overdose NyQuil, lisinopril, hydroxyzine, Coreg Severe depression secondary to going through a divorce and child custody issues History of Present Illness History of Present Illness Patient seen and examined in the intensive care unit Discussed with his nurse and the ENGINE PILOT Patient is extremely sleepy and doesn't seem to wake up from a Vitals Vitals Vital Signs Date Time Temp Pulse Resp B/P (MAP) Pulse Ox O2 Delivery O2 Flow Rate FiO2 02/04/19 10:15 54 128/64 (85) 02/04/19 10:12 99 Nasal Cannula 2.0 02/04/19 10:00 15 02/04/19 08:00 97.2 97.2 Physical Exam General: Other (very sleepy) Heart: Regular rate, Normal S1, Normal S2 Lungs: Wheezing Abdomen: Normal bowel sounds, Soft Extremities: No clubbing, No cyanosis, No edema Skin: No rashes, No breakdown Labs Labs: Laboratory Tests Test 02/03/19 17:10 02/03/19 17:25 02/03/19 17:59 02/03/19 18:38 White Blood Count 7.1 x10^3/uL (4.0-11.0) Red Blood Count 4.13 x10^6/uL (4.30-5.70) Hemoglobin 12.7 g/dL (13.0-17.5) Hematocrit 37.3 % (39.0-53.0) Mean Corpuscular Volume 90 fL (79-100) Mean Corpuscular Hemoglobin 31 pg (25-35) Mean Corpuscular Hemoglobin Concent 34 g/dL (31-37) Red Cell Distribution Width 13.0 % (11.5-14.5) Platelet Count 197 x10^3/uL (140-400) Neutrophils (%) (Auto) 60 % (31-73) Lymphocytes (%) (Auto) 31 % (24-48) Monocytes (%) (Auto) 8 % (0-9) Eosinophils (%) (Auto) 1 % (0-3) Basophils (%) (Auto) 1 % (0-3) Neutrophils # (Auto) 4.2 x10^3uL (1.8-7.7) Lymphocytes # (Auto) 2.2 x10^3/uL (1.0-4.8) Monocytes # (Auto) 0.5 x10^3/uL (0.0-1.1) Eosinophils # (Auto) 0.1 x10^3/uL (0.0-0.7) Basophils # (Auto) 0.0 x10^3/uL (0.0-0.2) Prothrombin Time 14.2 SEC (11.7-14.0) Prothromb Time International Ratio 1.1 (0.8-1.1) Activated Partial Thromboplast Time 32 SEC (24-38) Sodium Level 140 mmol/L (136-145) Potassium Level 3.8 mmol/L (3.5-5.1) Chloride Level 106 mmol/L (98-107) Carbon Dioxide Level 23 mmol/L (21-32) Anion Gap 11 (6-14) Blood Urea Nitrogen 19 mg/dL (8-26) Creatinine 1.3 mg/dL (0.7-1.3) Estimated GFR (Cockcroft-Gault) 63.6 BUN/Creatinine Ratio 15 (6-20) Glucose Level 178 mg/dL (70-99) Calcium Level 8.6 mg/dL (8.5-10.1) Magnesium Level 2.1 mg/dL (1.8-2.4) Total Bilirubin 0.8 mg/dL (0.2-1.0) Aspartate Amino Transf (AST/SGOT) 32 U/L (15-37) Alanine Aminotransferase (ALT/SGPT) 28 U/L (16-63) Alkaline Phosphatase 52 U/L (46-116) Total Protein 6.6 g/dL (6.4-8.2) Albumin 3.9 g/dL (3.4-5.0) Albumin/Globulin Ratio 1.4 (1.0-1.7) Lipase 106 U/L (73-393) Salicylates Level < 2.8 mg/dL (2.8-20.0) Salicylate Last Dose Date Unk Salicylate Last Dose Time Unk Acetaminophen Level 14.68 mcg/ml (10-30) Acetaminophen Last Dose Date Unk Acetaminophen Last Dose Time Unk Ethyl Alcohol Level < 10 mg/dL (0-10) Urine Color Yellow Urine Clarity Clear Urine pH 5.5 Urine Specific [place] >=1.030 Urine Protein Negative mg/dL (NEG-TRACE) Urine Glucose (UA) Negative mg/dL (NEG) Urine Ketones (Stick) >=80 mg/dL (NEG) Urine Blood Negative (NEG) Urine Nitrite Negative (NEG) Urine Bilirubin Small (NEG) Urine Urobilinogen Dipstick 0.2 mg/dL (0.2 mg/dL) Urine Leukocyte Esterase Negative (NEG) Urine RBC 0 /HPF (0-2) Urine WBC 1-4 /HPF (0-4) Urine Squamous Epithelial Cells Occ /LPF Urine Bacteria 0 /HPF (0-FEW) Urine Mucus Mod /LPF Urine Opiates Screen Neg (NEG) Urine Methadone Screen Neg (NEG) Urine Barbiturates Neg (NEG) Urine Phencyclidine Screen Neg (NEG) Urine Amphetamine/Methamphetamine Pos (NEG) Urine Benzodiazepines Screen Neg (NEG) Urine Cocaine Screen Neg (NEG) Urine Cannabinoids Screen Neg (NEG) Urine Ethyl Alcohol Neg (NEG) Glucose (Fingerstick) 143 mg/dL (70-99) 159 mg/dL (70-99) Test 02/03/19 18:52 02/03/19 19:25 02/03/19 19:40 02/03/19 21:15 Glucose (Fingerstick) 508 mg/dL (70-99) 123 mg/dL (70-99) 21 mg/dL (70-99) Acetaminophen Level 13.44 mcg/ml (10-30) Acetaminophen Last Dose Date Acetaminophen Last Dose Time Test 02/03/19 21:27 02/03/19 21:40 02/03/19 22:35 02/03/19 22:50 Glucose (Fingerstick) 141 mg/dL (70-99) 18 mg/dL (70-99) 84 mg/dL (70-99) Glucose Level 83 mg/dL (70-99) Test 02/03/19 23:59 02/04/19 00:00 02/04/19 00:29 02/04/19 01:11 Glucose (Fingerstick) 47 mg/dL (70-99) 50 mg/dL (70-99) 80 mg/dL (70-99) 61 mg/dL (70-99) Test 02/04/19 02:16 02/04/19 03:14 02/04/19 04:24 02/04/19 05:38 Glucose (Fingerstick) 88 mg/dL (70-99) 92 mg/dL (70-99) 112 mg/dL (70-99) 135 mg/dL (70-99) Test 02/04/19 07:08 02/04/19 08:03 02/04/19 09:01 02/04/19 10:17 Glucose (Fingerstick) 177 mg/dL (70-99) 170 mg/dL (70-99) 183 mg/dL (70-99) 141 mg/dL (70-99) Review of Systems Review of Systems Unable to obtain patient is too sleepy Assessment and Plan Assessmemt and Plan Overdose NyQuil, lisinopril, hydroxyzine, Coreg Severe depression secondary to going through a divorce and child custody issues Critical hypotension Plan IV pressors including epinephrine and dopamine ICU monitoring We are awaiting these multiple medications to clear his bloodstream Once that happens and he wakes up We will have Pat team evaluate him and he will probably go to inpatient psych DVT prophylaxis Full code IV fluids Prognosis guarded Total time 31 minutes Comment Review of Relevant I have reviewed the following items alonso (where applicable) has been applied. Labs Laboratory Tests Test 02/03/19 17:10 02/03/19 17:25 02/03/19 17:59 02/03/19 18:38 White Blood Count 7.1 x10^3/uL (4.0-11.0) Red Blood Count 4.13 x10^6/uL (4.30-5.70) Hemoglobin 12.7 g/dL (13.0-17.5) Hematocrit 37.3 % (39.0-53.0) Mean Corpuscular Volume 90 fL (79-100) Mean Corpuscular Hemoglobin 31 pg (25-35) Mean Corpuscular Hemoglobin Concent 34 g/dL (31-37) Red Cell Distribution Width 13.0 % (11.5-14.5) Platelet Count 197 x10^3/uL (140-400) Neutrophils (%) (Auto) 60 % (31-73) Lymphocytes (%) (Auto) 31 % (24-48) Monocytes (%) (Auto) 8 % (0-9) Eosinophils (%) (Auto) 1 % (0-3) Basophils (%) (Auto) 1 % (0-3) Neutrophils # (Auto) 4.2 x10^3uL (1.8-7.7) Lymphocytes # (Auto) 2.2 x10^3/uL (1.0-4.8) Monocytes # (Auto) 0.5 x10^3/uL (0.0-1.1) Eosinophils # (Auto) 0.1 x10^3/uL (0.0-0.7) Basophils # (Auto) 0.0 x10^3/uL (0.0-0.2) Prothrombin Time 14.2 SEC (11.7-14.0) Prothromb Time International Ratio 1.1 (0.8-1.1) Activated Partial Thromboplast Time 32 SEC (24-38) Sodium Level 140 mmol/L (136-145) Potassium Level 3.8 mmol/L (3.5-5.1) Chloride Level 106 mmol/L (98-107) Carbon Dioxide Level 23 mmol/L (21-32) Anion Gap 11 (6-14) Blood Urea Nitrogen 19 mg/dL (8-26) Creatinine 1.3 mg/dL (0.7-1.3) Estimated GFR (Cockcroft-Gault) 63.6 BUN/Creatinine Ratio 15 (6-20) Glucose Level 178 mg/dL (70-99) Calcium Level 8.6 mg/dL (8.5-10.1) Magnesium Level 2.1 mg/dL (1.8-2.4) Total Bilirubin 0.8 mg/dL (0.2-1.0) Aspartate Amino Transf (AST/SGOT) 32 U/L (15-37) Alanine Aminotransferase (ALT/SGPT) 28 U/L (16-63) Alkaline Phosphatase 52 U/L (46-116) Total Protein 6.6 g/dL (6.4-8.2) Albumin 3.9 g/dL (3.4-5.0) Albumin/Globulin Ratio 1.4 (1.0-1.7) Lipase 106 U/L (73-393) Salicylates Level < 2.8 mg/dL (2.8-20.0) Salicylate Last Dose Date Unk Salicylate Last Dose Time Unk Acetaminophen Level 14.68 mcg/ml (10-30) Acetaminophen Last Dose Date Unk Acetaminophen Last Dose Time Unk Ethyl Alcohol Level < 10 mg/dL (0-10) Urine Color Yellow Urine Clarity Clear Urine pH 5.5 Urine Specific [place] >=1.030 Urine Protein Negative mg/dL (NEG-TRACE) Urine Glucose (UA) Negative mg/dL (NEG) Urine Ketones (Stick) >=80 mg/dL (NEG) Urine Blood Negative (NEG) Urine Nitrite Negative (NEG) Urine Bilirubin Small (NEG) Urine Urobilinogen Dipstick 0.2 mg/dL (0.2 mg/dL) Urine Leukocyte Esterase Negative (NEG) Urine RBC 0 /HPF (0-2) Urine WBC 1-4 /HPF (0-4) Urine Squamous Epithelial Cells Occ /LPF Urine Bacteria 0 /HPF (0-FEW) Urine Mucus Mod /LPF Urine Opiates Screen Neg (NEG) Urine Methadone Screen Neg (NEG) Urine Barbiturates Neg (NEG) Urine Phencyclidine Screen Neg (NEG) Urine Amphetamine/Methamphetamine Pos (NEG) Urine Benzodiazepines Screen Neg (NEG) Urine Cocaine Screen Neg (NEG) Urine Cannabinoids Screen Neg (NEG) Urine Ethyl Alcohol Neg (NEG) Glucose (Fingerstick) 143 mg/dL (70-99) 159 mg/dL (70-99) Test 02/03/19 18:52 02/03/19 19:25 02/03/19 19:40 02/03/19 21:15 Glucose (Fingerstick) 508 mg/dL (70-99) 123 mg/dL (70-99) 21 mg/dL (70-99) Acetaminophen Level 13.44 mcg/ml (10-30) Acetaminophen Last Dose Date Acetaminophen Last Dose Time Test 02/03/19 21:27 02/03/19 21:40 02/03/19 22:35 02/03/19 22:50 Glucose (Fingerstick) 141 mg/dL (70-99) 18 mg/dL (70-99) 84 mg/dL (70-99) Glucose Level 83 mg/dL (70-99) Test 02/03/19 23:59 02/04/19 00:00 02/04/19 00:29 02/04/19 01:11 Glucose (Fingerstick) 47 mg/dL (70-99) 50 mg/dL (70-99) 80 mg/dL (70-99) 61 mg/dL (70-99) Test 02/04/19 02:16 02/04/19 03:14 02/04/19 04:24 02/04/19 05:38 Glucose (Fingerstick) 88 mg/dL (70-99) 92 mg/dL (70-99) 112 mg/dL (70-99) 135 mg/dL (70-99) Test 02/04/19 07:08 02/04/19 08:03 02/04/19 09:01 02/04/19 10:17 Glucose (Fingerstick) 177 mg/dL (70-99) 170 mg/dL (70-99) 183 mg/dL (70-99) 141 mg/dL (70-99) Laboratory Tests Test 02/03/19 17:10 02/03/19 17:25 02/03/19 17:59 02/03/19 18:38 White Blood Count 7.1 x10^3/uL (4.0-11.0) Red Blood Count 4.13 x10^6/uL (4.30-5.70) Hemoglobin 12.7 g/dL (13.0-17.5) Hematocrit 37.3 % (39.0-53.0) Mean Corpuscular Volume 90 fL (79-100) Mean Corpuscular Hemoglobin 31 pg (25-35) Mean Corpuscular Hemoglobin Concent 34 g/dL (31-37) Red Cell Distribution Width 13.0 % (11.5-14.5) Platelet Count 197 x10^3/uL (140-400) Neutrophils (%) (Auto) 60 % (31-73) Lymphocytes (%) (Auto) 31 % (24-48) Monocytes (%) (Auto) 8 % (0-9) Eosinophils (%) (Auto) 1 % (0-3) Basophils (%) (Auto) 1 % (0-3) Neutrophils # (Auto) 4.2 x10^3uL (1.8-7.7) Lymphocytes # (Auto) 2.2 x10^3/uL (1.0-4.8) Monocytes # (Auto) 0.5 x10^3/uL (0.0-1.1) Eosinophils # (Auto) 0.1 x10^3/uL (0.0-0.7) Basophils # (Auto) 0.0 x10^3/uL (0.0-0.2) Prothrombin Time 14.2 SEC (11.7-14.0) Prothromb Time International Ratio 1.1 (0.8-1.1) Activated Partial Thromboplast Time 32 SEC (24-38) Sodium Level 140 mmol/L (136-145) Potassium Level 3.8 mmol/L (3.5-5.1) Chloride Level 106 mmol/L (98-107) Carbon Dioxide Level 23 mmol/L (21-32) Anion Gap 11 (6-14) Blood Urea Nitrogen 19 mg/dL (8-26) Creatinine 1.3 mg/dL (0.7-1.3) Estimated GFR (Cockcroft-Gault) 63.6 BUN/Creatinine Ratio 15 (6-20) Glucose Level 178 mg/dL (70-99) Calcium Level 8.6 mg/dL (8.5-10.1) Magnesium Level 2.1 mg/dL (1.8-2.4) Total Bilirubin 0.8 mg/dL (0.2-1.0) Aspartate Amino Transf (AST/SGOT) 32 U/L (15-37) Alanine Aminotransferase (ALT/SGPT) 28 U/L (16-63) Alkaline Phosphatase 52 U/L (46-116) Total Protein 6.6 g/dL (6.4-8.2) Albumin 3.9 g/dL (3.4-5.0) Albumin/Globulin Ratio 1.4 (1.0-1.7) Lipase 106 U/L (73-393) Salicylates Level < 2.8 mg/dL (2.8-20.0) Salicylate Last Dose Date Unk Salicylate Last Dose Time Unk Acetaminophen Level 14.68 mcg/ml (10-30) Acetaminophen Last Dose Date Unk Acetaminophen Last Dose Time Unk Ethyl Alcohol Level < 10 mg/dL (0-10) Urine Color Yellow Urine Clarity Clear Urine pH 5.5 Urine Specific [place] >=1.030 Urine Protein Negative mg/dL (NEG-TRACE) Urine Glucose (UA) Negative mg/dL (NEG) Urine Ketones (Stick) >=80 mg/dL (NEG) Urine Blood Negative (NEG) Urine Nitrite Negative (NEG) Urine Bilirubin Small (NEG) Urine Urobilinogen Dipstick 0.2 mg/dL (0.2 mg/dL) Urine Leukocyte Esterase Negative (NEG) Urine RBC 0 /HPF (0-2) Urine WBC 1-4 /HPF (0-4) Urine Squamous Epithelial Cells Occ /LPF Urine Bacteria 0 /HPF (0-FEW) Urine Mucus Mod /LPF Urine Opiates Screen Neg (NEG) Urine Methadone Screen Neg (NEG) Urine Barbiturates Neg (NEG) Urine Phencyclidine Screen Neg (NEG) Urine Amphetamine/Methamphetamine Pos (NEG) Urine Benzodiazepines Screen Neg (NEG) Urine Cocaine Screen Neg (NEG) Urine Cannabinoids Screen Neg (NEG) Urine Ethyl Alcohol Neg (NEG) Glucose (Fingerstick) 143 mg/dL (70-99) 159 mg/dL (70-99) Test 02/03/19 18:52 02/03/19 19:25 02/03/19 19:40 02/03/19 21:15 Glucose (Fingerstick) 508 mg/dL (70-99) 123 mg/dL (70-99) 21 mg/dL (70-99) Acetaminophen Level 13.44 mcg/ml (10-30) Acetaminophen Last Dose Date Acetaminophen Last Dose Time Test 02/03/19 21:27 02/03/19 21:40 02/03/19 22:35 02/03/19 22:50 Glucose (Fingerstick) 141 mg/dL (70-99) 18 mg/dL (70-99) 84 mg/dL (70-99) Glucose Level 83 mg/dL (70-99) Test 02/03/19 23:59 02/04/19 00:00 02/04/19 00:29 02/04/19 01:11 Glucose (Fingerstick) 47 mg/dL (70-99) 50 mg/dL (70-99) 80 mg/dL (70-99) 61 mg/dL (70-99) Test 02/04/19 02:16 02/04/19 03:14 02/04/19 04:24 02/04/19 05:38 Glucose (Fingerstick) 88 mg/dL (70-99) 92 mg/dL (70-99) 112 mg/dL (70-99) 135 mg/dL (70-99) Test 02/04/19 07:08 02/04/19 08:03 02/04/19 09:01 02/04/19 10:17 Glucose (Fingerstick) 177 mg/dL (70-99) 170 mg/dL (70-99) 183 mg/dL (70-99) 141 mg/dL (70-99) Medications Current Medications Sodium Chloride 1,000 ml @ 100 mls/hr Q10H IV Last administered on 02/03/19 17:12; Start 02/03/19 at 17:10; Stop 02/04/19 at 03:09; Status DC Sodium Chloride 1,000 ml @ 1,000 mls/hr 1X ONCE IV Last administered on 02/03/19 18:02; Start 02/03/19 at 17:45; Stop 02/03/19 at 18:44; Status DC Glucagon (Glucagen) 5 mg 1X ONCE IV Last administered on 02/03/19at 18:02; Start 02/03/19 at 18:00; Stop 02/03/19 at 18:01; Status DC Sodium Chloride 1,000 ml @ 1,000 mls/hr 1X ONCE IV Last administered on 02/03/19 18:03; Start 02/03/19 at 18:00; Stop 02/03/19 at 18:59; Status DC Sodium Chloride 1,000 ml @ 1,000 mls/hr 1X ONCE IV Last administered on 02/03/19 18:16; Start 02/03/19 at 18:15; Stop 02/03/19 at 19:14; Status DC Glucagon 5 mg/ Sodium Chloride 105 ml @ 100 mls/hr 1X ONCE IM ; Start 02/03/19 at 18:30; Stop 02/03/19 at 19:32; Status Cancel Dextrose (Dextrose 50%-Water Syringe) 100 gm 1X ONCE IV Last administered on 02/03/19at 18:37; Start 02/03/19 at 18:30; Stop 02/03/19 at 18:31; Status DC Insulin Human Regular (HumuLIN R VIAL) 83 unit 1X ONCE IV Last administered on 02/03/19 18:48; Start 02/03/19 at 18:30; Stop 02/03/19 at 18:31; Status DC Insulin Human Regular 150 ml @ 0 mls/hr 1X ONCE IV Last administered on 02/03/19 19:05; Start 02/03/19 at 18:30; Stop 02/03/19 at 18:31; Status DC Glucagon 5 mg/ Sodium Chloride 105 ml @ 100 mls/hr 1X ONCE IV Last administered on 5/24/19at 18:30; Start 02/03/19 at 18:30; Stop 02/03/19 at 19:32; Status DC Naloxone HCl (Narcan) 0.4 mg 1X ONCE IV ; Start 02/03/19 at 18:45; Stop 02/03/19 at 18:46; Status DC Calcium Gluconate (Calcium Gluconate) 1,000 mg 1X ONCE IVP Last administered on 02/03/19at 19:19; Start 02/03/19 at 18:45; Stop 02/03/19 at 18:46; Status DC Dextrose/Sodium Chloride 1,000 ml @ 100 mls/hr 1X ONCE IV Last administered on 02/03/19at 19:41; Start 02/03/19 at 18:45; Stop 02/04/19 at 04:44; Status DC Sodium Chloride 1,000 ml @ 1,000 mls/hr 1X ONCE IV Last administered on 02/03/19at 21:29; Start 02/03/19 at 21:15; Stop 02/03/19 at 22:14; Status DC Dextrose (Dextrose 50%-Water Syringe) 12.5 gm PRN Q15MIN PRN IV SEE COMMENTS Last administered on 02/04/19at 01:26; Start 02/03/19 at 21:30 Albuterol Sulfate (Ventolin Neb Soln) 2.5 mg PRN Q4HRS PRN NEB BRADYC ARDIA/HYPOTENSION Last administered on 02/03/19at 21:45; Start 02/03/19 at 21:30 Albuterol Sulfate (Ventolin Neb Soln) 2.5 mg Q4HRS NEB Last administered on 02/04/19at 10:05; Start 02/04/19 at 22:00 Dopamine HCl/ Dextrose 250 ml @ 6.272 mls/ hr CONT PRN IV SEE I/O RECORD Last administered on 02/04/19at 05:24; Start 02/03/19 at 21:30 Dextrose 1,000 ml @ 80 mls/hr [id number] IV Last administered on 02/03/19at 23:15; Start 02/03/19 at 23:00; Stop 02/04/19 at 08:02; Status DC Vasopressin 40 unit/Dextrose 102 ml @ 6 mls/hr CONT PRN IV SEE I/O RECORD Last administered on 02/03/19at 23:10; Start 02/03/19 at 23:00 Phenylephrine HCl 20 mg/Sodium Chloride 252 ml @ 22.68 mls/ hr 1X ONCE IV Last administered on 02/03/19at 23:11; Start 02/03/19 at 23:30; Stop 02/04/19 at 10:36; Status DC Epinephrine HCl 4 mg/Sodium Chloride 254 ml @ 31.86 mls/ hr CONT PRN IV SEE I/O RECORD; Start 02/03/19 at 23:30; Stop 02/04/19 at 02:00; Status DC Epinephrine HCl 4 mg/Sodium Chloride 254 ml @ 3.81 mls/hr CONT PRN IV SEE I/O RECORD Last administered on 02/04/19at 07:25; Start 02/04/19 at 02:00 Dextrose 1,000 ml @ 80 mls/hr [id number] IV Last administered on 02/04/19at 08:35; Start 02/04/19 at 08:30 Piperacillin Sod/ Tazobactam Sod (Zosyn Per Pharmacy) 1 each PRN DAILY PRN MC SEE COMMENTS; Start 02/04/19 at 10:00 Piperacillin Sod/ Tazobactam Sod 3.375 gm/Sodium Chloride 50 ml @ 100 mls/hr Q6HRS IV ; Start 02/04/19 at 11:00 Vitals/I & O Vital Sign - Last 24 Hours 02/03/19 02/03/19 02/03/19 02/03/19 17:05 17:34 17:36 17:51 Temp 98.1 98.1 Pulse 59 74 73 64 Resp 14 16 16 18 B/P (MAP) 83/48 (60) 84/43 (57) 93/51 (65) 77/46 (56) Pulse Ox 97 98 100 97 O2 Delivery Room Air Room Air Room Air Room Air 02/03/19 02/03/19 02/03/19 02/03/19 18:06 18:15 18:21 18:36 Pulse 64 60 63 61 Resp 18 16 16 16 B/P (MAP) 75/43 (54) 70/37 (48) 87/52 (64) 80/42 (55) Pulse Ox 98 98 99 99 O2 Delivery Room Air Room Air Room Air Room Air 02/03/19 02/03/19 02/03/19 5/24/19 18:51 19:06 19:21 19:36 Pulse 60 66 64 70 Resp 16 16 16 16 B/P (MAP) 86/49 (61) 79/41 (54) 80/44 (56) 76/38 (51) Pulse Ox 95 99 98 99 O2 Delivery Room Air Room Air Room Air Room Air 02/03/19 02/03/19 02/03/19 02/03/19 19:51 20:00 20:06 20:15 Temp 97.6 97.6 Pulse 62 58 62 Resp 16 16 B/P (MAP) 90/61 (71) 92/43 (59) 81/45 (57) Pulse Ox 98 98 99 O2 Delivery Room Air Room Air Room Air Room Air 02/03/19 02/03/19 02/03/19 02/03/19 20:30 20:45 21:00 21:15 Pulse 64 58 58 58 Resp 11 13 15 18 B/P (MAP) 82/49 (60) 70/39 (49) 72/37 (49) 77/41 (53) Pulse Ox 99 94 95 95 O2 Delivery Room Air Room Air 02/03/19 02/03/19 02/03/19 02/03/19 21:30 21:45 21:45 22:00 Pulse 58 56 58 Resp 18 18 B/P (MAP) 66/35 (45) 65/36 (46) 73/40 (51) Pulse Ox 94 95 100 93 O2 Delivery Room Air Room Air Room Air Room Air 02/03/19 02/03/19 02/03/19 02/03/19 22:20 22:30 22:45 23:00 Pulse 60 60 58 56 Resp 20 20 20 17 B/P (MAP) 74/39 (51) 55/24 (34) 64/27 (39) 71/38 (49) Pulse Ox 94 94 94 100 O2 Delivery Room Air Room Air Room Air Nasal Cannula O2 Flow Rate 2.0 02/03/19 02/03/19 02/03/19 02/03/19 23:15 23:30 23:45 23:45 Pulse 56 52 62 66 Resp 17 20 19 18 B/P (MAP) 78/40 (53) 70/43 (52) 93/48 (63) 92/43 (59) Pulse Ox 100 100 4 100 O2 Delivery Nasal Cannula Nasal Cannula Nasal Cannula Nasal Cannula O2 Flow Rate 2.0 2.0 2.0 02/04/19 02/04/19 02/04/19 02/04/19 00:00 00:00 00:05 01:00 Temp 96.7 96.7 Pulse 66 58 Resp 19 16 B/P (MAP) 98/60 (73) 92/56 (68) Pulse Ox 100 100 97 O2 Delivery Nasal Cannula Nasal Cannula Room Air Nasal Cannula O2 Flow Rate 4.0 2.0 4.0 02/04/19 02/04/19 02/04/19 02/04/19 02:00 02:30 03:08 04:05 Temp 96.9 96.9 Pulse 46 39 39 Resp 12 13 12 B/P (MAP) 106/66 (79) 120/74 (89) 135/84 (101) Pulse Ox 97 95 98 O2 Delivery Nasal Cannula Nasal Cannula Nasal Cannula O2 Flow Rate 2.0 2.0 2.0 2.0 02/04/19 02/04/19 02/04/19 02/04/19 04:30 05:00 06:01 07:00 Pulse 36 38 40 Resp 11 12 11 B/P (MAP) 138/83 (101) 148/87 (107) 170/95 (120) Pulse Ox 99 99 99 O2 Delivery Room Air Nasal Cannula Nasal Cannula Nasal Cannula O2 Flow Rate 2.0 2.0 02/04/19 02/04/19 02/04/19 02/04/19 07:15 07:30 07:45 08:00 Temp 97.2 97.2 Pulse 38 46 72 41 Resp 11 12 B/P (MAP) 174/98 (123) 158/88 (111) 152/80 (104) 156/83 (107) Pulse Ox 96 O2 Delivery Nasal Cannula Room Air O2 Flow Rate 2.0 02/04/19 02/04/19 02/04/19 02/04/19 09:00 09:15 10:00 10:12 Pulse 40 40 48 Resp 12 15 B/P (MAP) 152/76 (101) 144/72 (96) 125/62 (83) Pulse Ox 97 98 99 O2 Delivery Room Air Room Air Nasal Cannula O2 Flow Rate 2.0 02/04/19 10:15 Pulse 54 B/P (MAP) 128/64 (85) Intake and Output 02/03/19 02/03/19 02/04/19 15:00 23:00 07:00 Intake Total 3000 ml Output Total 2125 ml Balance 3000 ml -2125 ml GEOVANY KENNEDY III DO February 04, 2019 11:10
[2019-02-04 11:56] LABS: BASO % 0 % (0-3); EOS % 0 % (0-3); HEMATOCRIT 35.1 % (39.0-53.0); HEMOGLOBIN 11.7 g/dL (13.0-17.5); LYMPH # 1.7 x10^3/uL (1.0-4.8); LYMPH % 16 % (24-48); MEAN CORPUSCULAR HEMOGLOBIN 30 pg (25-35); MEAN CORPUSCULAR HGB CONC 33 g/dL (31-37); MEAN CORPUSCULAR VOLUME 92 fL (79-100); MONO # 0.6 x10^3/uL (0.0-1.1); MONO % 6 % (0-9); NEUT # 8.4 x10^3uL (1.8-7.7); NEUT % 78 % (31-73); PLATELET COUNT 167 x10^3/uL (140-400); RED BLOOD COUNT 3.84 x10^6/uL (4.30-5.70); RED CELL DISTRIBUTION WIDTH 13.4 % (11.5-14.5); WHITE BLOOD COUNT 10.8 x10^3/uL (4.0-11.0)
--- NOTE | 2019-02-04 12:00 | NUR ---
Pt actively having thoughts of suicide. Pt stated to that when he gets out of here, he is going to do the same thing again because he does not want to live anymore. Pt stated to , after this nurse spoke to patient about condition, that he is going to pull out all of his lines and run from the company pilot. Per , they have been having problems in their marriage which led to him being suicidal. Spoke to security about pt. PAT team will be here this afternoon per conversation from PAT steam cleaner. Family at bedside. Pt continues to be 1:1 observation. Will continue to monitor.
[2019-02-04 13:07] LABS: ALBUMIN 2.9 g/dL (3.4-5.0); ALBUMIN/GLOBULIN RATIO 1.3 (1.0-1.7); CALCIUM 7.6 mg/dL (8.5-10.1); GFR 86.1; MAGNESIUM 1.6 mg/dL (1.8-2.4); POTASSIUM 4.2 mmol/L (3.5-5.1); TOTAL BILIRUBIN 0.9 mg/dL (0.2-1.0); TOTAL PROTEIN 5.2 g/dL (6.4-8.2)
[2019-02-04] MEDS ORDERED: MAGNESIUM SULFATE 2GM 50 ML IV ONE (15:30)
[2019-02-04 17:42] LABS: CALCIUM 7.9 mg/dL (8.5-10.1); CREATININE 1.1 mg/dL (0.7-1.3); GFR 77.1; MAGNESIUM 2.6 mg/dL (1.8-2.4); POTASSIUM 3.7 mmol/L (3.5-5.1)
--- NOTE | 2019-02-04 21:44 | NUR ---
Arterial line remove at this time by GALDINO Peng and GALDINO Corey. Pressure was held by GALDINO Corey for 5 minutes. patient is tolerating well at this time. this RN will continue to monitor the patient. Addendum: 02/04/19 at 2150 by GEORGIANA MACHADO RN Second RN name eduardo Sepulveda
[2019-02-04] MEDS ORDERED: ACETAMINOPHEN 325 MG TABLET. PO PRN (22:15)
--- NOTE | 2019-02-04 22:17 | NUR ---
patient is unable to leave AMA due to involuntary commitment to the hospital by state commercial drafter.
[2019-02-05] VITALS (10 sets, daily range): BP systolic 113–137; BP diastolic 64–83
--- NOTE | 2019-02-05 | NUR ---
patient refusing for this RN to check patient's Blood glucose, this RN stated the reason for checking the blood glucose, patient still refused. This RN will attempt to check glucose in the morning. This RN will continue to monitor the patient at this time.
--- NOTE | 2019-02-05 06:38 | PDOC ---
PULMONARY PROGRESS NOTES Subjective alert, off epi, no sob, no cough, no pain Vitals Vital Signs Date Time Temp Pulse Resp B/P (MAP) Pulse Ox O2 Delivery O2 Flow Rate FiO2 02/05/19 06:00 98.7 83 17 127/83 (98) 96 Room Air 98.7 02/04/19 14:03 2.0 ROS: No Nausea, No Chest Pain General: Alert, Oriented X4 HEENT: Other (nc at perrl nose throat clear) Lungs: Clear Cardiovascular: S1, S2 Abdomen: Soft, Non-tender Neuro Exam: Alert, Oriented Extremities: No Edema Skin: Warm Labs Laboratory Tests Test 02/03/19 17:10 02/03/19 17:25 02/03/19 17:59 02/03/19 18:38 White Blood Count 7.1 x10^3/uL (4.0-11.0) Red Blood Count 4.13 x10^6/uL (4.30-5.70) Hemoglobin 12.7 g/dL (13.0-17.5) Hematocrit 37.3 % (39.0-53.0) Mean Corpuscular Volume 90 fL (79-100) Mean Corpuscular Hemoglobin 31 pg (25-35) Mean Corpuscular Hemoglobin Concent 34 g/dL (31-37) Red Cell Distribution Width 13.0 % (11.5-14.5) Platelet Count 197 x10^3/uL (140-400) Neutrophils (%) (Auto) 60 % (31-73) Lymphocytes (%) (Auto) 31 % (24-48) Monocytes (%) (Auto) 8 % (0-9) Eosinophils (%) (Auto) 1 % (0-3) Basophils (%) (Auto) 1 % (0-3) Neutrophils # (Auto) 4.2 x10^3uL (1.8-7.7) Lymphocytes # (Auto) 2.2 x10^3/uL (1.0-4.8) Monocytes # (Auto) 0.5 x10^3/uL (0.0-1.1) Eosinophils # (Auto) 0.1 x10^3/uL (0.0-0.7) Basophils # (Auto) 0.0 x10^3/uL (0.0-0.2) Prothrombin Time 14.2 SEC (11.7-14.0) Prothromb Time International Ratio 1.1 (0.8-1.1) Activated Partial Thromboplast Time 32 SEC (24-38) Sodium Level 140 mmol/L (136-145) Potassium Level 3.8 mmol/L (3.5-5.1) Chloride Level 106 mmol/L (98-107) Carbon Dioxide Level 23 mmol/L (21-32) Anion Gap 11 (6-14) Blood Urea Nitrogen 19 mg/dL (8-26) Creatinine 1.3 mg/dL (0.7-1.3) Estimated GFR (Cockcroft-Gault) 63.6 BUN/Creatinine Ratio 15 (6-20) Glucose Level 178 mg/dL (70-99) Calcium Level 8.6 mg/dL (8.5-10.1) Magnesium Level 2.1 mg/dL (1.8-2.4) Total Bilirubin 0.8 mg/dL (0.2-1.0) Aspartate Amino Transf (AST/SGOT) 32 U/L (15-37) Alanine Aminotransferase (ALT/SGPT) 28 U/L (16-63) Alkaline Phosphatase 52 U/L (46-116) Total Protein 6.6 g/dL (6.4-8.2) Albumin 3.9 g/dL (3.4-5.0) Albumin/Globulin Ratio 1.4 (1.0-1.7) Lipase 106 U/L (73-393) Salicylates Level < 2.8 mg/dL (2.8-20.0) Salicylate Last Dose Date Unk Salicylate Last Dose Time Unk Acetaminophen Level 14.68 mcg/ml (10-30) Acetaminophen Last Dose Date Unk Acetaminophen Last Dose Time Unk Ethyl Alcohol Level < 10 mg/dL (0-10) Urine Color Yellow Urine Clarity Clear Urine pH 5.5 Urine Specific [place] >=1.030 Urine Protein Negative mg/dL (NEG-TRACE) Urine Glucose (UA) Negative mg/dL (NEG) Urine Ketones (Stick) >=80 mg/dL (NEG) Urine Blood Negative (NEG) Urine Nitrite Negative (NEG) Urine Bilirubin Small (NEG) Urine Urobilinogen Dipstick 0.2 mg/dL (0.2 mg/dL) Urine Leukocyte Esterase Negative (NEG) Urine RBC 0 /HPF (0-2) Urine WBC 1-4 /HPF (0-4) Urine Squamous Epithelial Cells Occ /LPF Urine Bacteria 0 /HPF (0-FEW) Urine Mucus Mod /LPF Urine Opiates Screen Neg (NEG) Urine Methadone Screen Neg (NEG) Urine Barbiturates Neg (NEG) Urine Phencyclidine Screen Neg (NEG) Urine Amphetamine/Methamphetamine Pos (NEG) Urine Benzodiazepines Screen Neg (NEG) Urine Cocaine Screen Neg (NEG) Urine Cannabinoids Screen Neg (NEG) Urine Ethyl Alcohol Neg (NEG) Glucose (Fingerstick) 143 mg/dL (70-99) 159 mg/dL (70-99) Test 02/03/19 18:52 02/03/19 19:25 02/03/19 19:40 02/03/19 21:15 Glucose (Fingerstick) 508 mg/dL (70-99) 123 mg/dL (70-99) 21 mg/dL (70-99) Acetaminophen Level 13.44 mcg/ml (10-30) Acetaminophen Last Dose Date Acetaminophen Last Dose Time Test 02/03/19 21:27 02/03/19 21:40 02/03/19 22:35 02/03/19 22:50 Glucose (Fingerstick) 141 mg/dL (70-99) 18 mg/dL (70-99) 84 mg/dL (70-99) Glucose Level 83 mg/dL (70-99) Test 02/03/19 23:59 02/04/19 00:00 02/04/19 00:29 02/04/19 01:11 Glucose (Fingerstick) 47 mg/dL (70-99) 50 mg/dL (70-99) 80 mg/dL (70-99) 61 mg/dL (70-99) Test 02/04/19 02:16 02/04/19 03:06 02/04/19 03:14 02/04/19 04:24 Glucose (Fingerstick) 88 mg/dL (70-99) 92 mg/dL (70-99) 112 mg/dL (70-99) Nasal Screen MRSA (PCR) Negative (Negative) Test 02/04/19 05:38 02/04/19 07:08 02/04/19 08:03 02/04/19 09:01 Glucose (Fingerstick) 135 mg/dL (70-99) 177 mg/dL (70-99) 170 mg/dL (70-99) 183 mg/dL (70-99) Test 02/04/19 10:17 02/04/19 11:06 02/04/19 11:50 02/04/19 11:55 Glucose (Fingerstick) 141 mg/dL (70-99) 158 mg/dL (70-99) White Blood Count 10.8 x10^3/uL (4.0-11.0) Red Blood Count 3.84 x10^6/uL (4.30-5.70) Hemoglobin 11.7 g/dL (13.0-17.5) Hematocrit 35.1 % (39.0-53.0) Mean Corpuscular Volume 92 fL (79-100) Mean Corpuscular Hemoglobin 30 pg (25-35) Mean Corpuscular Hemoglobin Concent 33 g/dL (31-37) Red Cell Distribution Width 13.4 % (11.5-14.5) Platelet Count 167 x10^3/uL (140-400) Neutrophils (%) (Auto) 78 % (31-73) Lymphocytes (%) (Auto) 16 % (24-48) Monocytes (%) (Auto) 6 % (0-9) Eosinophils (%) (Auto) 0 % (0-3) Basophils (%) (Auto) 0 % (0-3) Neutrophils # (Auto) 8.4 x10^3uL (1.8-7.7) Lymphocytes # (Auto) 1.7 x10^3/uL (1.0-4.8) Monocytes # (Auto) 0.6 x10^3/uL (0.0-1.1) Eosinophils # (Auto) 0.0 x10^3/uL (0.0-0.7) Basophils # (Auto) 0.0 x10^3/uL (0.0-0.2) Sodium Level 139 mmol/L (136-145) Potassium Level 4.2 mmol/L (3.5-5.1) Chloride Level 106 mmol/L (98-107) Carbon Dioxide Level 23 mmol/L (21-32) Anion Gap 10 (6-14) Blood Urea Nitrogen 14 mg/dL (8-26) Creatinine 1.0 mg/dL (0.7-1.3) Estimated GFR (Cockcroft-Gault) 86.1 BUN/Creatinine Ratio 14 (6-20) Glucose Level 173 mg/dL (70-99) Calcium Level 7.6 mg/dL (8.5-10.1) Magnesium Level 1.6 mg/dL (1.8-2.4) Total Bilirubin 0.9 mg/dL (0.2-1.0) Aspartate Amino Transf (AST/SGOT) 36 U/L (15-37) Alanine Aminotransferase (ALT/SGPT) 39 U/L (16-63) Alkaline Phosphatase 41 U/L (46-116) Total Protein 5.2 g/dL (6.4-8.2) Albumin 2.9 g/dL (3.4-5.0) Albumin/Globulin Ratio 1.3 (1.0-1.7) Troponin I Quantitative 0.034 ng/mL (0.000-0.055) Test 02/04/19 13:45 02/04/19 16:49 02/04/19 17:18 02/05/19 06:03 Glucose (Fingerstick) 200 mg/dL (70-99) 149 mg/dL (70-99) 141 mg/dL (70-99) Sodium Level 144 mmol/L (136-145) Potassium Level 3.7 mmol/L (3.5-5.1) Chloride Level 110 mmol/L (98-107) Carbon Dioxide Level 23 mmol/L (21-32) Anion Gap 11 (6-14) Blood Urea Nitrogen 13 mg/dL (8-26) Creatinine 1.1 mg/dL (0.7-1.3) Estimated GFR (Cockcroft-Gault) 77.1 Glucose Level 161 mg/dL (70-99) Calcium Level 7.9 mg/dL (8.5-10.1) Magnesium Level 2.6 mg/dL (1.8-2.4) Laboratory Tests Test 02/04/19 07:08 02/04/19 08:03 02/04/19 09:01 02/04/19 10:17 Glucose (Fingerstick) 177 mg/dL (70-99) 170 mg/dL (70-99) 183 mg/dL (70-99) 141 mg/dL (70-99) Test 02/04/19 11:06 02/04/19 11:50 02/04/19 11:55 02/04/19 13:45 White Blood Count 10.8 x10^3/uL (4.0-11.0) Red Blood Count 3.84 x10^6/uL (4.30-5.70) Hemoglobin 11.7 g/dL (13.0-17.5) Hematocrit 35.1 % (39.0-53.0) Mean Corpuscular Volume 92 fL (79-100) Mean Corpuscular Hemoglobin 30 pg (25-35) Mean Corpuscular Hemoglobin Concent 33 g/dL (31-37) Red Cell Distribution Width 13.4 % (11.5-14.5) Platelet Count 167 x10^3/uL (140-400) Neutrophils (%) (Auto) 78 % (31-73) Lymphocytes (%) (Auto) 16 % (24-48) Monocytes (%) (Auto) 6 % (0-9) Eosinophils (%) (Auto) 0 % (0-3) Basophils (%) (Auto) 0 % (0-3) Neutrophils # (Auto) 8.4 x10^3uL (1.8-7.7) Lymphocytes # (Auto) 1.7 x10^3/uL (1.0-4.8) Monocytes # (Auto) 0.6 x10^3/uL (0.0-1.1) Eosinophils # (Auto) 0.0 x10^3/uL (0.0-0.7) Basophils # (Auto) 0.0 x10^3/uL (0.0-0.2) Sodium Level 139 mmol/L (136-145) Potassium Level 4.2 mmol/L (3.5-5.1) Chloride Level 106 mmol/L (98-107) Carbon Dioxide Level 23 mmol/L (21-32) Anion Gap 10 (6-14) Blood Urea Nitrogen 14 mg/dL (8-26) Creatinine 1.0 mg/dL (0.7-1.3) Estimated GFR (Cockcroft-Gault) 86.1 BUN/Creatinine Ratio 14 (6-20) Glucose Level 173 mg/dL (70-99) Calcium Level 7.6 mg/dL (8.5-10.1) Magnesium Level 1.6 mg/dL (1.8-2.4) Total Bilirubin 0.9 mg/dL (0.2-1.0) Aspartate Amino Transf (AST/SGOT) 36 U/L (15-37) Alanine Aminotransferase (ALT/SGPT) 39 U/L (16-63) Alkaline Phosphatase 41 U/L (46-116) Total Protein 5.2 g/dL (6.4-8.2) Albumin 2.9 g/dL (3.4-5.0) Albumin/Globulin Ratio 1.3 (1.0-1.7) Troponin I Quantitative 0.034 ng/mL (0.000-0.055) Glucose (Fingerstick) 158 mg/dL (70-99) 200 mg/dL (70-99) Test 02/04/19 16:49 02/04/19 17:18 02/05/19 06:03 Glucose (Fingerstick) 149 mg/dL (70-99) 141 mg/dL (70-99) Sodium Level 144 mmol/L (136-145) Potassium Level 3.7 mmol/L (3.5-5.1) Chloride Level 110 mmol/L (98-107) Carbon Dioxide Level 23 mmol/L (21-32) Anion Gap 11 (6-14) Blood Urea Nitrogen 13 mg/dL (8-26) Creatinine 1.1 mg/dL (0.7-1.3) Estimated GFR (Cockcroft-Gault) 77.1 Glucose Level 161 mg/dL (70-99) Calcium Level 7.9 mg/dL (8.5-10.1) Magnesium Level 2.6 mg/dL (1.8-2.4) Impression . IMPRESSION: 1. Abnormal chest x-ray, probably atelectasis 2. Hypotension, Bradycardia, resolved 3. Drug Overdose Plan . AND PLAN: 1. There is no sign of aspiration. The patient is alert and oriented. 2. off epinephrine 3. advised to quit smoking tobacco and doing drugs 4. He would require Psych consult. 5. Continue bronchodilator. 6. Elevate head of bed. 7. Titrate FiO2 to keep O2 saturation 92%, off 02 will sign off, available if needed ROXY DEVINE MD February 05, 2019 06:38
[2019-02-05] MEDS: ALBUTEROL SULFATE 2.5 MG/3 ML NEBU. NEB SCH (09:31)
--- NOTE | 2019-02-05 12:19 | PDOC ---
[employer] [facility] PROGRESS NOTE Chief Complaint Chief Complaint Overdose NyQuil, lisinopril, hydroxyzine, Coreg Severe depression secondary to going through a divorce and child custody issues History of Present Illness History of Present Illness Patient seen and examined in the intensive care unit Discussed with his nurse Awake and able to communicate clearly Hemodynamically stable Off pressors Able to discharge to inpatient psych Vitals Vitals Vital Signs Date Time Temp Pulse Resp B/P (MAP) Pulse Ox O2 Delivery O2 Flow Rate FiO2 02/05/19 12:05 98.2 95 20 131/80 (97) 98 Room Air 98.2 02/04/19 14:03 2.0 Physical Exam General: Alert, Oriented X3, Cooperative, No acute distress Heart: Regular rate, Normal S1, Normal S2 Lungs: Clear Abdomen: Normal bowel sounds, Soft Extremities: No clubbing, No cyanosis, No edema Skin: No rashes, No breakdown Labs Labs: Laboratory Tests Test 02/04/19 13:45 02/04/19 16:49 02/04/19 17:18 02/05/19 06:03 Glucose (Fingerstick) 200 mg/dL (70-99) 149 mg/dL (70-99) 141 mg/dL (70-99) Sodium Level 144 mmol/L (136-145) Potassium Level 3.7 mmol/L (3.5-5.1) Chloride Level 110 mmol/L (98-107) Carbon Dioxide Level 23 mmol/L (21-32) Anion Gap 11 (6-14) Blood Urea Nitrogen 13 mg/dL (8-26) Creatinine 1.1 mg/dL (0.7-1.3) Estimated GFR (Cockcroft-Gault) 77.1 Glucose Level 161 mg/dL (70-99) Calcium Level 7.9 mg/dL (8.5-10.1) Magnesium Level 2.6 mg/dL (1.8-2.4) Test 02/05/19 09:13 Glucose (Fingerstick) 115 mg/dL (70-99) Review of Systems Review of Systems Denies MARIANO Denies N/V Assessment and Plan Assessmemt and Plan Assessment: Overdose Plan: Hemodynamically stable Off pressors Able to discharge to inpatient psych Comment Review of Relevant I have reviewed the following items alonso (where applicable) has been applied. Labs Laboratory Tests Test 5/24/19 17:10 02/03/19 17:25 02/03/19 17:59 02/03/19 18:38 White Blood Count 7.1 x10^3/uL (4.0-11.0) Red Blood Count 4.13 x10^6/uL (4.30-5.70) Hemoglobin 12.7 g/dL (13.0-17.5) Hematocrit 37.3 % (39.0-53.0) Mean Corpuscular Volume 90 fL (79-100) Mean Corpuscular Hemoglobin 31 pg (25-35) Mean Corpuscular Hemoglobin Concent 34 g/dL (31-37) Red Cell Distribution Width 13.0 % (11.5-14.5) Platelet Count 197 x10^3/uL (140-400) Neutrophils (%) (Auto) 60 % (31-73) Lymphocytes (%) (Auto) 31 % (24-48) Monocytes (%) (Auto) 8 % (0-9) Eosinophils (%) (Auto) 1 % (0-3) Basophils (%) (Auto) 1 % (0-3) Neutrophils # (Auto) 4.2 x10^3uL (1.8-7.7) Lymphocytes # (Auto) 2.2 x10^3/uL (1.0-4.8) Monocytes # (Auto) 0.5 x10^3/uL (0.0-1.1) Eosinophils # (Auto) 0.1 x10^3/uL (0.0-0.7) Basophils # (Auto) 0.0 x10^3/uL (0.0-0.2) Prothrombin Time 14.2 SEC (11.7-14.0) Prothromb Time International Ratio 1.1 (0.8-1.1) Activated Partial Thromboplast Time 32 SEC (24-38) Sodium Level 140 mmol/L (136-145) Potassium Level 3.8 mmol/L (3.5-5.1) Chloride Level 106 mmol/L (98-107) Carbon Dioxide Level 23 mmol/L (21-32) Anion Gap 11 (6-14) Blood Urea Nitrogen 19 mg/dL (8-26) Creatinine 1.3 mg/dL (0.7-1.3) Estimated GFR (Cockcroft-Gault) 63.6 BUN/Creatinine Ratio 15 (6-20) Glucose Level 178 mg/dL (70-99) Calcium Level 8.6 mg/dL (8.5-10.1) Magnesium Level 2.1 mg/dL (1.8-2.4) Total Bilirubin 0.8 mg/dL (0.2-1.0) Aspartate Amino Transf (AST/SGOT) 32 U/L (15-37) Alanine Aminotransferase (ALT/SGPT) 28 U/L (16-63) Alkaline Phosphatase 52 U/L (46-116) Total Protein 6.6 g/dL (6.4-8.2) Albumin 3.9 g/dL (3.4-5.0) Albumin/Globulin Ratio 1.4 (1.0-1.7) Lipase 106 U/L (73-393) Salicylates Level < 2.8 mg/dL (2.8-20.0) Salicylate Last Dose Date Unk Salicylate Last Dose Time Unk Acetaminophen Level 14.68 mcg/ml (10-30) Acetaminophen Last Dose Date Unk Acetaminophen Last Dose Time Unk Ethyl Alcohol Level < 10 mg/dL (0-10) Urine Color Yellow Urine Clarity Clear Urine pH 5.5 Urine Specific [place] >=1.030 Urine Protein Negative mg/dL (NEG-TRACE) Urine Glucose (UA) Negative mg/dL (NEG) Urine Ketones (Stick) >=80 mg/dL (NEG) Urine Blood Negative (NEG) Urine Nitrite Negative (NEG) Urine Bilirubin Small (NEG) Urine Urobilinogen Dipstick 0.2 mg/dL (0.2 mg/dL) Urine Leukocyte Esterase Negative (NEG) Urine RBC 0 /HPF (0-2) Urine WBC 1-4 /HPF (0-4) Urine Squamous Epithelial Cells Occ /LPF Urine Bacteria 0 /HPF (0-FEW) Urine Mucus Mod /LPF Urine Opiates Screen Neg (NEG) Urine Methadone Screen Neg (NEG) Urine Barbiturates Neg (NEG) Urine Phencyclidine Screen Neg (NEG) Urine Amphetamine/Methamphetamine Pos (NEG) Urine Benzodiazepines Screen Neg (NEG) Urine Cocaine Screen Neg (NEG) Urine Cannabinoids Screen Neg (NEG) Urine Ethyl Alcohol Neg (NEG) Glucose (Fingerstick) 143 mg/dL (70-99) 159 mg/dL (70-99) Test 02/03/19 18:52 02/03/19 19:25 02/03/19 19:40 02/03/19 21:15 Glucose (Fingerstick) 508 mg/dL (70-99) 123 mg/dL (70-99) 21 mg/dL (70-99) Acetaminophen Level 13.44 mcg/ml (10-30) Acetaminophen Last Dose Date Acetaminophen Last Dose Time Test 02/03/19 21:27 02/03/19 21:40 02/03/19 22:35 02/03/19 22:50 Glucose (Fingerstick) 141 mg/dL (70-99) 18 mg/dL (70-99) 84 mg/dL (70-99) Glucose Level 83 mg/dL (70-99) Test 02/03/19 23:59 02/04/19 00:00 02/04/19 00:29 02/04/19 01:11 Glucose (Fingerstick) 47 mg/dL (70-99) 50 mg/dL (70-99) 80 mg/dL (70-99) 61 mg/dL (70-99) Test 02/04/19 02:16 02/04/19 03:06 02/04/19 03:14 02/04/19 04:24 Glucose (Fingerstick) 88 mg/dL (70-99) 92 mg/dL (70-99) 112 mg/dL (70-99) Nasal Screen MRSA (PCR) Negative (Negative) Test 02/04/19 05:38 02/04/19 07:08 02/04/19 08:03 02/04/19 09:01 Glucose (Fingerstick) 135 mg/dL (70-99) 177 mg/dL (70-99) 170 mg/dL (70-99) 183 mg/dL (70-99) Test 02/04/19 10:17 02/04/19 11:06 02/04/19 11:50 02/04/19 11:55 Glucose (Fingerstick) 141 mg/dL (70-99) 158 mg/dL (70-99) White Blood Count 10.8 x10^3/uL (4.0-11.0) Red Blood Count 3.84 x10^6/uL (4.30-5.70) Hemoglobin 11.7 g/dL (13.0-17.5) Hematocrit 35.1 % (39.0-53.0) Mean Corpuscular Volume 92 fL (79-100) Mean Corpuscular Hemoglobin 30 pg (25-35) Mean Corpuscular Hemoglobin Concent 33 g/dL (31-37) Red Cell Distribution Width 13.4 % (11.5-14.5) Platelet Count 167 x10^3/uL (140-400) Neutrophils (%) (Auto) 78 % (31-73) Lymphocytes (%) (Auto) 16 % (24-48) Monocytes (%) (Auto) 6 % (0-9) Eosinophils (%) (Auto) 0 % (0-3) Basophils (%) (Auto) 0 % (0-3) Neutrophils # (Auto) 8.4 x10^3uL (1.8-7.7) Lymphocytes # (Auto) 1.7 x10^3/uL (1.0-4.8) Monocytes # (Auto) 0.6 x10^3/uL (0.0-1.1) Eosinophils # (Auto) 0.0 x10^3/uL (0.0-0.7) Basophils # (Auto) 0.0 x10^3/uL (0.0-0.2) Sodium Level 139 mmol/L (136-145) Potassium Level 4.2 mmol/L (3.5-5.1) Chloride Level 106 mmol/L (98-107) Carbon Dioxide Level 23 mmol/L (21-32) Anion Gap 10 (6-14) Blood Urea Nitrogen 14 mg/dL (8-26) Creatinine 1.0 mg/dL (0.7-1.3) Estimated GFR (Cockcroft-Gault) 86.1 BUN/Creatinine Ratio 14 (6-20) Glucose Level 173 mg/dL (70-99) Calcium Level 7.6 mg/dL (8.5-10.1) Magnesium Level 1.6 mg/dL (1.8-2.4) Total Bilirubin 0.9 mg/dL (0.2-1.0) Aspartate Amino Transf (AST/SGOT) 36 U/L (15-37) Alanine Aminotransferase (ALT/SGPT) 39 U/L (16-63) Alkaline Phosphatase 41 U/L (46-116) Total Protein 5.2 g/dL (6.4-8.2) Albumin 2.9 g/dL (3.4-5.0) Albumin/Globulin Ratio 1.3 (1.0-1.7) Troponin I Quantitative 0.034 ng/mL (0.000-0.055) Test 02/04/19 13:45 02/04/19 16:49 02/04/19 17:18 02/05/19 06:03 Glucose (Fingerstick) 200 mg/dL (70-99) 149 mg/dL (70-99) 141 mg/dL (70-99) Sodium Level 144 mmol/L (136-145) Potassium Level 3.7 mmol/L (3.5-5.1) Chloride Level 110 mmol/L (98-107) Carbon Dioxide Level 23 mmol/L (21-32) Anion Gap 11 (6-14) Blood Urea Nitrogen 13 mg/dL (8-26) Creatinine 1.1 mg/dL (0.7-1.3) Estimated GFR (Cockcroft-Gault) 77.1 Glucose Level 161 mg/dL (70-99) Calcium Level 7.9 mg/dL (8.5-10.1) Magnesium Level 2.6 mg/dL (1.8-2.4) Test 02/05/19 09:13 Glucose (Fingerstick) 115 mg/dL (70-99) Laboratory Tests Test 02/04/19 13:45 02/04/19 16:49 02/04/19 17:18 02/05/19 06:03 Glucose (Fingerstick) 200 mg/dL (70-99) 149 mg/dL (70-99) 141 mg/dL (70-99) Sodium Level 144 mmol/L (136-145) Potassium Level 3.7 mmol/L (3.5-5.1) Chloride Level 110 mmol/L (98-107) Carbon Dioxide Level 23 mmol/L (21-32) Anion Gap 11 (6-14) Blood Urea Nitrogen 13 mg/dL (8-26) Creatinine 1.1 mg/dL (0.7-1.3) Estimated GFR (Cockcroft-Gault) 77.1 Glucose Level 161 mg/dL (70-99) Calcium Level 7.9 mg/dL (8.5-10.1) Magnesium Level 2.6 mg/dL (1.8-2.4) Test 02/05/19 09:13 Glucose (Fingerstick) 115 mg/dL (70-99) Medications Current Medications Sodium Chloride 1,000 ml @ 100 mls/hr Q10H IV Last administered on 02/03/19 17:12; Start 02/03/19 at 17:10; Stop 02/04/19 at 03:09; Status DC Sodium Chloride 1,000 ml @ 1,000 mls/hr 1X ONCE IV Last administered on 02/03/19 18:02; Start 02/03/19 at 17:45; Stop 02/03/19 at 18:44; Status DC Glucagon (Glucagen) 5 mg 1X ONCE IV Last administered on 02/03/19 18:02; Start 02/03/19 at 18:00; Stop 02/03/19 at 18:01; Status DC Sodium Chloride 1,000 ml @ 1,000 mls/hr 1X ONCE IV Last administered on 02/03/19 18:03; Start 02/03/19 at 18:00; Stop 02/03/19 at 18:59; Status DC Sodium Chloride 1,000 ml @ 1,000 mls/hr 1X ONCE IV Last administered on 02/03/19at 18:16; Start 02/03/19 at 18:15; Stop 02/03/19 at 19:14; Status DC Glucagon 5 mg/ Sodium Chloride 105 ml @ 100 mls/hr 1X ONCE IM ; Start 02/03/19 at 18:30; Stop 02/03/19 at 19:32; Status Cancel Dextrose (Dextrose 50%-Water Syringe) 100 gm 1X ONCE IV Last administered on 02/03/19 18:37; Start 02/03/19 at 18:30; Stop 02/03/19 at 18:31; Status DC Insulin Human Regular (HumuLIN R VIAL) 83 unit 1X ONCE IV Last administered on 02/03/19at 18:48; Start 02/03/19 at 18:30; Stop 02/03/19 at 18:31; Status DC Insulin Human Regular 150 ml @ 0 mls/hr 1X ONCE IV Last administered on 02/03/19 19:05; Start 02/03/19 at 18:30; Stop 02/03/19 at 18:31; Status DC Glucagon 5 mg/ Sodium Chloride 105 ml @ 100 mls/hr 1X ONCE IV Last administered on 02/03/19at 18:30; Start 02/03/19 at 18:30; Stop 02/03/19 at 19:32; Status DC Naloxone HCl (Narcan) 0.4 mg 1X ONCE IV ; Start 02/03/19 at 18:45; Stop 02/03/19 at 18:46; Status DC Calcium Gluconate (Calcium Gluconate) 1,000 mg 1X ONCE IVP Last administered on 02/03/19at 19:19; Start 02/03/19 at 18:45; Stop 02/03/19 at 18:46; Status DC Dextrose/Sodium Chloride 1,000 ml @ 100 mls/hr 1X ONCE IV Last administered on 02/03/19at 19:41; Start 02/03/19 at 18:45; Stop 02/04/19 at 04:44; Status DC Sodium Chloride 1,000 ml @ 1,000 mls/hr 1X ONCE IV Last administered on 02/03/19at 21:29; Start 02/03/19 at 21:15; Stop 02/03/19 at 22:14; Status DC Dextrose (Dextrose 50%-Water Syringe) 12.5 gm PRN Q15MIN PRN IV SEE COMMENTS Last administered on 02/04/19at 01:26; Start 02/03/19 at 21:30 Albuterol Sulfate (Ventolin Neb Soln) 2.5 mg PRN Q4HRS PRN NEB BRADYCARDIA/HYPOTENSION Last administered on 02/03/19at 21:45; Start 02/03/19 at 21:30 Albuterol Sulfate (Ventolin Neb Soln) 2.5 mg Q4HRS NEB Last administered on 02/04/19at 14:03; Start 02/04/19 at 22:00 Dopamine HCl/ Dextrose 250 ml @ 6.272 mls/ hr CONT PRN IV SEE I/O RECORD Last administered on 02/04/19at 05:24; Start 02/03/19 at 21:30 Dextrose 1,000 ml @ 80 mls/hr [id number] IV Last administered on 02/03/19at 23:15; Start 02/03/19 at 23:00; Stop 02/04/19 at 08:02; Status DC Vasopressin 40 unit/Dextrose 102 ml @ 6 mls/hr CONT PRN IV SEE I/O RECORD Last administered on 02/03/19at 23:10; Start 02/03/19 at 23:00 Phenylephrine HCl 20 mg/Sodium Chloride 252 ml @ 22.68 mls/ hr 1X ONCE IV Last administered on 02/03/19at 23:11; Start 02/03/19 at 23:30; Stop 02/04/19 at 10:36; Status DC Epinephrine HCl 4 mg/Sodium Chloride 254 ml @ 31.86 mls/ hr CONT PRN IV SEE I/O RECORD; Start 02/03/19 at 23:30; Stop 02/04/19 at 02:00; Status DC Epinephrine HCl 4 mg/Sodium Chloride 254 ml @ 3.81 mls/hr CONT PRN IV SEE I/O RECORD Last administered on 02/04/19at 07:25; Start 02/04/19 at 02:00 Dextrose 1,000 ml @ 80 mls/hr [id number] IV Last administered on 02/04/19at 08:35; Start 02/04/19 at 08:30; Stop 02/04/19 at 17:02; Status DC Piperacillin Sod/ Tazobactam Sod (Zosyn Per Pharmacy) 1 each PRN DAILY PRN MC SEE COMMENTS; Start 02/04/19 at 10:00; Stop 02/04/19 at 16:59; Status DC Piperacillin Sod/ Tazobactam Sod 3.375 gm/Sodium Chloride 50 ml @ 100 mls/hr Q6HRS IV Last administered on 02/04/19at 11:16; Start 02/04/19 at 11:00; Stop 02/04/19 at 16:58; Status DC Magnesium Sulfate 50 ml @ 25 mls/hr 1X ONCE IV Last administered on 02/04/19at 15:05; Start 02/04/19 at 15:30; Stop 02/04/19 at 17:29; Status DC Lorazepam (Ativan Inj) 1 mg PRN Q6HRS PRN IV ANXIETY / AGITATION Last administered on 02/05/19at 01:39; Start 02/04/19 at 22:15 Lorazepam (Ativan Inj) 2 mg PRN Q6HRS PRN IV ANXIETY / AGITATION; Start 02/04/19 at 22:15 Acetaminophen (Tylenol) 650 mg PRN Q6HRS PRN PO MILD PAIN 1-3 Last administered on 02/05/19at 00:24; Start 02/04/19 at 22:15 Vitals/I & O Vital Sign - Last 24 Hours 02/04/19 02/04/19 02/04/19 02/04/19 13:00 13:15 13:30 13:45 Pulse 55 58 66 62 Resp 15 B/P (MAP) 133/69 (90) 134/68 (90) 138/70 (92) 124/60 (81) Pulse Ox 98 O2 Delivery Room Air 02/04/19 02/04/19 02/04/19 02/04/19 14:00 14:03 15:00 16:00 Pulse 55 67 Resp 15 15 B/P (MAP) 125/62 (83) 108/58 (75) Pulse Ox 99 100 97 O2 Delivery Room Air Nasal Cannula Room Air Room Air O2 Flow Rate 2.0 02/04/19 02/04/19 02/04/19 02/04/19 16:00 17:00 18:00 19:00 Temp 98.2 98.9 98.2 98.9 Pulse 85 80 81 66 Resp 16 20 18 14 B/P (MAP) 96/48 (64) 107/62 (77) 104/58 (73) 103/50 (67) Pulse Ox 98 98 97 96 O2 Delivery Room Air Room Air Room Air Room Air 02/04/19 02/04/19 02/04/19 02/04/19 19:53 20:02 20:55 22:00 Temp 98.0 98.5 98.0 98.5 Pulse 80 82 85 Resp 17 15 15 B/P (MAP) 109/55 (73) 106/55 (72) Pulse Ox 98 99 O2 Delivery Room Air Room Air Room Air 02/04/19 02/05/19 02/05/19 02/05/19 23:02 00:02 00:03 01:00 Temp 98.1 98.1 Pulse 70 85 81 Resp 21 18 18 B/P (MAP) 97/50 (66) Pulse Ox 96 O2 Delivery Room Air Room Air 02/05/19 02/05/19 02/05/19 02/05/19 02:05 02:50 04:03 05:00 Temp 98.4 98.4 Pulse 67 76 90 Resp 19 16 18 B/P (MAP) 122/67 (85) Pulse Ox 98 O2 Delivery Room Air Room Air Room Air Room Air 02/05/19 02/05/19 02/05/19 02/05/19 06:00 07:07 08:20 08:21 Temp 98.7 98.5 98.7 98.5 Pulse 83 91 92 Resp 17 15 18 B/P (MAP) 127/83 (98) 127/74 (91) 113/64 (80) Pulse Ox 96 96 95 O2 Delivery Room Air Room Air Room Air Room Air 02/05/19 02/05/19 02/05/19 02/05/19 09:06 09:31 10:11 11:13 Pulse 96 91 98 Resp 22 16 15 B/P (MAP) 113/74 (87) 137/77 (97) 136/72 (93) Pulse Ox 98 95 95 98 O2 Delivery Room Air Room Air Room Air Room Air 02/05/19 02/05/19 12:02 12:05 Temp 98.2 98.2 Pulse 95 Resp 20 B/P (MAP) 131/80 (97) Pulse Ox 98 O2 Delivery Room Air Room Air Intake and Output 02/04/19 02/04/19 02/05/19 15:00 23:00 07:00 Intake Total 3783.65 ml 650 ml 250 ml Output Total 2140 ml 875 ml 375 ml Balance 1643.65 ml -225 ml -125 ml GEOVANY KENNEDY III DO February 05, 2019 12:19
--- NOTE | 2019-02-05 13:36 | NUR ---
Sandra from [facility] team came in to speak with pt. about plan for treatment once pt. is medically stable to leave the hospital. This nurse was present during this interaction. Pt. stated, after thinking overnight, he is wanting to go voluntarily to receive in-patient treatment. Sandra from [facility] team contacted Manish Kilpatrick and information was faxed over. Manish Kilpatrick called and spoke with this nurse and then spoke with pt. Awaiting return phone call to hear whether pt. was accepted or not.
--- NOTE | 2019-02-05 13:45 | NUR ---
Sandra from PAT team called this nurse to let her know that pt. has been accepted to [facility]. Sandra gave this nurse Admitting Doctor's name, the pt. room number, and the phone number to contact the nurse who will be taking over care. This nurse will set up transportation for pt. and will call [facility] to give report and an ETA.
--- NOTE | 2019-02-05 14:12 | NUR ---
This nurse called for transportation after speaking with nursing lead section supervisor to ensure it is ok for [facility] to sign off as payer of last resort for [facility] transportation. Nursing lead section supervisor stated this is ok. [facility] transportation scheduled to pick pt. up today 02/05/19 around 1430.
--- NOTE | 2019-02-05 14:14 | NUR ---
This nurse called and gave report and an ETA to receiving nurse at [facility]. .
--- NOTE | 2019-02-05 14:45 | NUR ---
Discharge Note: [facility] Discharge instructions and discharge home medications reviewed with Patient and a copy given. All questions have been answered and understanding verbalized. The following instructions and handouts were given: subsatance abuse, suicidal thoughts (how to help yourself) Discontinued lines and drains: all peripheral and central lines removed. no complications. Patient discharged voluntarily to [facility] for inpatient psych via [facility] transportation. Pt. mother called and made aware of transport per pt. request.
--- NOTE | 2019-02-05 14:56 | EKG ---
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
--- NOTE | 2019-02-05 14:59 | EKG ---
[facility] [address] [place] [address] Test Date: 2019-02-03 Test Time: 17:11:44 Pat Name: VÍCTOR MULLIGAN Department: Room: Gender: M Housekeeping Laundry Worker: : 1985 Requested By: LASHELL FAGAN Order Number: [id number] Reading MD: Measurements Intervals [place] Rate: 68 P: 36 CA: 200 QRS: 88 QRSD: 90 T: 36 QT: 390 QTc: 415 Interpretive Statements SINUS RHYTHM OTHERWISE NORMAL ECG RI6.01 Unconfirmed report No previous ECG available for comparison
--- NOTE | 2019-02-05 20:06 | DS ---
DATE OF DISCHARGE: 02/05/2019 ADMISSION DIAGNOSIS: Suicidal ideation with ingestion of lisinopril, hydroxyzine, Nyquil and Coreg. DISCHARGE DIAGNOSES: 1. Resolving ingestion. 2. Clinical depression. CONSULTS: The Psych team. PROCEDURES: None. HOSPITAL COURSE: The patient is a pleasant, healthy 33-year-old male who is going through a divorce. He became extremely depressed and took a lot of pills. Basically, we admitted him to the ICU. Over the past 3 days he has returned to his baseline, but he is extremely depressed. We have had him evaluated. It seems that he needs to be in inpatient psych. I just examined him. His heart tones were normal. His lungs were clear. He is alert and oriented, but he is depressed. We plan to transfer to either [facility] inpatient psych or [facility] inpatient psych. The patient is definitely clinically stable for transfer to inpatient psych. DISPOSITION: Inpatient psych. ACTIVITY: As tolerated. DIET: Low sodium. MEDICATIONS: Please see the MRAD. TOTAL TIME: 31 minutes. GEOVANY KENNEDY DO DR: FLORENCIO/teetee JOB#: [id number] / [id number]
== END 2019-02-05 14:35 | DRG 917 ==
LOC: ER 17:04 → 1 WEST ICU 18:57
PROVIDERS: ADMIT Family Medicine; ATTEND Family Medicine
PROC: 02HV33Z Insertion of Infusion Device into Superior Vena Cava, Percutaneous Approach (ICD-10-PCS; principal; 2019-02-03)
PROC: 03HY33Z Insertion of Infusion Device into Upper Artery, Percutaneous Approach (ICD-10-PCS; 2019-02-03)
DX: T43.592A Poisoning by other antipsychotics and neuroleptics, intentional self-harm, initial encounter (principal); G92 Toxic encephalopathy; R57.9 Shock, unspecified; T46.4X2A Poisoning by angiotensin-converting-enzyme inhibitors, intentional self-harm, initial encounter; T44.7X2A Poisoning by beta-adrenoreceptor antagonists, intentional self-harm, initial encounter; I10 Essential (primary) hypertension; F17.210 Nicotine dependence, cigarettes, uncomplicated; F15.10 Other stimulant abuse, uncomplicated; F32.9 Major depressive disorder, single episode, unspecified; Z60.9 Problem related to social environment, unspecified; Z73.3 Stress, not elsewhere classified; Y92.89 Other specified places as the place of occurrence of the external cause; Z82.49 Family history of ischemic heart disease and other diseases of the circulatory system
CPT/HCPCS: 36415; 71045; 80048; 80053; 80307; 80329; 81001; 82947; 82962; 83690; 83735; 84484; 85025; 85610; 85730; 87641; 93005; 94640; 94760; 96361; 96365; 96367; 96368; 96375; 99292; G0480; J0171; J0610; J1265; J1610; J1815; J2060; J2543; J3475; J3490; J7030; J7042; J7050; J7613; 99291-25

== ENCOUNTER 2021-12-27 07:50 | Inpatient (IN) | payer SELFPAY ==
[~2021-12-27] VITALS: Ht 172.7 cm; Wt 83.7 kg
[2021-12-27] MEDS ORDERED: LIDO:MAALOX 1:1 20 ML SINGLE DOSE. SWSW ONE (08:15)
[2021-12-27] MEDS ORDERED: PANTOPRAZOLE IV PUSH 40 MG VIAL. IVP ONE (08:15)
[2021-12-27 08:22] LABS: BASO % 0 % (0-3); EOS # 0.2 x10^3/uL (0.0-0.7); EOS % 2 % (0-3); HEMATOCRIT 42.6 % (39.0-53.0); HEMOGLOBIN 14.2 g/dL (13.0-17.5); LYMPH # 1.7 x10^3/uL (1.0-4.8); LYMPH % 19 % (24-48); MEAN CORPUSCULAR HEMOGLOBIN 31 pg (25-35); MEAN CORPUSCULAR HGB CONC 33 g/dL (31-37); MEAN CORPUSCULAR VOLUME 93 fL (79-100); MONO # 0.6 x10^3/uL (0.0-1.1); MONO % 7 % (0-9); NEUT # 6.4 x10^3/uL (1.8-7.7); NEUT % 71 % (31-73); PLATELET COUNT 239 x10^3/uL (140-400); RED BLOOD COUNT 4.59 x10^6/uL (4.30-5.70); RED CELL DISTRIBUTION WIDTH 13.5 % (11.5-14.5)
[2021-12-27 08:38] LABS: CALCIUM 9.6 mg/dL (8.5-10.1); CREATININE 1.2 mg/dL (0.7-1.3); GFR 68.5; POTASSIUM 3.9 mmol/L (3.5-5.1)
--- NOTE | 2021-12-27 08:42 | RAD ---
EXAMINATION: Abdominal radiograph. VIEWS: Single supine view the abdomen COMPARISON: None INDICATION: 36 years, Male, epigastric pain. FINDINGS: Nonobstructive bowel gas pattern. Moderate colonic stool content. No gross pneumoperitoneum.No abnorm al intra-abdominal calcifications. Lung bases are not well-visualized. No acute process process. IMPRESSION: Nonobstructive bowel gas pattern. Moderate colonic stool content. Correlate with symptoms of constipa tion. Electronically signed by: Jorge Loyd DO (12/27/2021 8:39 AM) [id number]
[2021-12-27 08:44] LABS: ALBUMIN 4.2 g/dL (3.4-5.0); ALBUMIN/GLOBULIN RATIO 1.2 (1.0-1.7); TOTAL BILIRUBIN 0.9 mg/dL (0.2-1.0); TOTAL PROTEIN 7.8 g/dL (6.4-8.2)
[2021-12-27] MEDS: MORPHINE SULFATE 2 MG/ML INJ. IV/SQ PRN ×2 (08:52→11:36)
[2021-12-27] MEDS ORDERED: ONDANSETRON PF 4 MG/2 ML VIAL. IVP ONE (09:30)
[2021-12-27] MEDS ORDERED: IOHEXOL 300 MG/ML 100ML VIAL. IV ONE (09:30)
[2021-12-27] MEDS ORDERED: HYDROmorphone 2 MG/ML INJ. IVP ONE (09:30)
[2021-12-27] MEDS ORDERED: IV NORMAL SALINE 1000ML BAG 1,000 ML IV ONE ×2 (09:30→11:30)
[2021-12-27] MEDS ORDERED: CONTRAST GIVEN. MC PRN (09:45)
--- NOTE | 2021-12-27 09:54 | RAD ---
Exam performed: Limited right upper quadrant sonogram. Indication: Epigastric pain Date of Service: 12/27/2021 . Comparison:None available Technique: Real-time grayscale imaging of the right upper abdomen is performed and images are obtaine d. Findings: The study is very limited due to overlying bowel gas and patient movement during scanning due to extr stanton pain. The liver is normal in size and echogenicity without focal lesions. It measures 16.7 cm in length. No intra or extrahepatic biliary ductal dilatation is seen. The common bile duct measures 3.0 mm. The g allbladder contains numerous shadowing calculi. No evidence of gallbladder wall thickening or pericho lecystic fluid seen. Right kidney measures 10.2 x 4.4 x 4.6 cm. There is no hydronephrosis or nephrolithiasis. Impression: 1. Limited exam. Cholelithiasis without sonographic evidence of acute cholecystitis. Electronically signed by: Marjan Stuart MD (12/27/2021 9:51 AM) [facility]
--- NOTE | 2021-12-27 10:33 | RAD ---
CT ABDOMEN+PELVIS W History: Choledocholithiasis. Comparison: Ultrasound right upper quadrant 12/27/2021. Technique: CT of the abdomen and pelvis with intravenous contrast. Note patient vomited during the in itial scan. Portions of the lower abdomen and pelvis were repeated due to motion artifact. Findings: The lung bases are clear. The liver and gallbladder are unremarkable. Gallstones noted on comparison ultrasound not well identified by CT. The distal common bile duct measures 5-6 mm. There is peripancr eatic fat edema. The spleen is unremarkable. The adrenal glands and kidneys are normal. The stomach and small bowel are normal. Normal appendix. Colon is unremarkable. Bladder and pancreas are within normal limits. Vasculature is unremarkable. No adenopathy. Soft tissues and osseous struct ures are within normal limits. Impression: 1. Diffuse peripancreatic fat inflammatory changes consistent with acute interstitial pancreatitis. ------ Exposure: One or more of the following individualized dose reduction techniques were utilized for thi s examination: 1. Automated exposure control 2. Adjustment of the mA and/or kV according to patient size 3. Use of iterative reconstruction technique. Electronically signed by: Felix Rojo MD (12/27/2021 10:30 AM) [id number]
--- NOTE | 2021-12-27 11:28 | PHYS DOC ---
Past Medical History Past Medical History: No Pertinent History Past Surgical History: No Surgical History Smoking Status: Current Some Day Smoker Alcohol Use: None General Adult EDM: Chief Complaint: ABDOMINAL PAIN HPI: HPI: Patient is a 36 year old Male who presents with epigastric abdominal pain. Patient states that he has been having this pain for 2 years now, today is the worst. He states that he woke up this morning at about 5 in the morning, he was awakened by the pain. He states that he has epigastric pain, it feels like his stomach is very full. He states that it is very painful and cramping. He has pain that comes and goes as well. He is also experiencing nausea. He has not had any defecation issues. He urinated this morning and had a normal bowel movement yesterday. He has never had pancreatitis or has been diagnosed with gallstones. Review of Systems: Review of Systems: Constitutional: Denies fever or chills. [] Eyes: Denies change in visual acuity. [] HENT: Denies nasal congestion or sore throat. [] Respiratory: Denies cough or shortness of breath. [] Cardiovascular: Denies chest pain or edema. [] GI: Positive abdominal pain, nausea, no vomiting, bloody stools or diarrhea. [] : Denies dysuria. [] Musculoskeletal: Denies back pain or joint pain. [] Integument: Denies rash. [] Neurologic: Denies headache, focal weakness or sensory changes. [] Endocrine: Denies polyuria or polydipsia. [] Lymphatic: Denies swollen glands. [] Psychiatric: Denies depression or anxiety. [] Heart Score: C/O Chest Pain: No Risk Factors: Risk Factors: DM, Current or recent (<one month) smoker, HTN, HLP, family history of CAD, obesity. Risk Scores: Score 0 - 3: 2.5% MACE over next 6 weeks - Discharge Home Score 4 - 6: 20.3% MACE over next 6 weeks - Admit for Clinical Observation Score 7 - 10: 72.7% MACE over next 6 weeks - Early Invasive Strategies Current Medications: Current Medications Medications (Trade) Dose Ordered Sig/Pierre Start Time Stop Time Status Last Admin Dose Admin Hydromorphone HCl (Dilaudid) 1 mg 1X ONCE 12/27/21 09:30 4/16/22 09:31 DC 12/27/21 09:30 1 MG Info (CONTRAST GIVEN -- Rx MONITORING) 1 each PRN DAILY PRN 12/27/21 09:45 12/29/21 09:44 Iohexol (Omnipaque 300 Mg/ml) 75 ml 1X ONCE 12/27/21 09:30 12/27/21 09:31 DC 12/27/21 09:30 75 ML Morphine Sulfate (Morphine Sulfate) 2 mg PRN Q15MIN PRN 12/27/21 08:15 12/28/21 08:14 12/27/21 08:52 2 MG Multi-Ingredient Mouthwash/Gargle (Gi Cocktail) 20 ml 1X ONCE 12/27/21 08:15 12/27/21 08:19 DC 12/27/21 08:51 20 ML Ondansetron HCl (Zofran) 4 mg 1X ONCE 12/27/21 09:30 12/27/21 09:31 DC 12/27/21 09:35 4 MG Pantoprazole Sodium (PROTONIX VIAL for IV PUSH) 40 mg 1X ONCE 12/27/21 08:15 12/27/21 08:19 DC 12/27/21 08:51 40 MG Sodium Chloride 1,000 ml @ 1,000 mls/hr 1X ONCE 12/27/21 09:30 12/27/21 10:31 DC 12/27/21 09:35 1,000 MLS/HR Allergies: Allergies: Allergies Coded Allergies Type Severity Reaction Last Updated Verified No Known Drug Allergies 02/03/19 No Physical Exam: PE: Constitutional: Well developed, well nourished, no acute distress, non-toxic appearance. [] HENT: Normocephalic, atraumatic, bilateral external ears normal, oropharynx moist, no oral exudates, nose normal. [] Eyes: PERRLA, EOMI, conjunctiva normal, no discharge. [] Neck: Normal range of motion, no tenderness, supple, no stridor. [] Cardiovascular:Heart rate regular rhythm, no murmur [] Lungs & Thorax: Bilateral breath sounds clear to auscultation [] Abdomen: Bowel sounds normal, soft, moderate epigastric tenderness, no masses, no pulsatile masses. [] Skin: Warm, dry, no erythema, no rash. [] Back: No tenderness, no CVA tenderness. [] Extremities: No tenderness, no cyanosis, no clubbing, ROM intact, no edema. [] Neurologic: Alert and oriented X 3, normal motor function, normal sensory function, no focal deficits noted. [] Psychologic: Affect normal, judgement normal, mood normal. [] Current Patient Data: Labs: Laboratory Tests Test 12/27/21 08:13 White Blood Count 9.0 x10^3/uL (4.0-11.0) Red Blood Count 4.59 x10^6/uL (4.30-5.70) Hemoglobin 14.2 g/dL (13.0-17.5) Hematocrit 42.6 % (39.0-53.0) Mean Corpuscular Volume 93 fL (79-100) Mean Corpuscular Hemoglobin 31 pg (25-35) Mean Corpuscular Hemoglobin Concent 33 g/dL (31-37) Red Cell Distribution Width 13.5 % (11.5-14.5) Platelet Count 239 x10^3/uL (140-400) Neutrophils (%) (Auto) 71 % (31-73) Lymphocytes (%) (Auto) 19 % (24-48) L Monocytes (%) (Auto) 7 % (0-9) Eosinophils (%) (Auto) 2 % (0-3) Basophils (%) (Auto) 0 % (0-3) Neutrophils # (Auto) 6.4 x10^3/uL (1.8-7.7) Lymphocytes # (Auto) 1.7 x10^3/uL (1.0-4.8) Monocytes # (Auto) 0.6 x10^3/uL (0.0-1.1) Eosinophils # (Auto) 0.2 x10^3/uL (0.0-0.7) Basophils # (Auto) 0.0 x10^3/uL (0.0-0.2) Sodium Level 144 mmol/L (136-145) Potassium Level 3.9 mmol/L (3.5-5.1) Chloride Level 103 mmol/L (98-107) Carbon Dioxide Level 32 mmol/L (21-32) Anion Gap 9 (6-14) Blood Urea Nitrogen 19 mg/dL (8-26) Creatinine 1.2 mg/dL (0.7-1.3) Estimated GFR (Cockcroft-Gault) 68.5 BUN/Creatinine Ratio 16 (6-20) Glucose Level 118 mg/dL (70-99) H Calcium Level 9.6 mg/dL (8.5-10.1) Total Bilirubin 0.9 mg/dL (0.2-1.0) Aspartate Amino Transferase (AST) 679 U/L (15-37) H Alanine Aminotransferase (ALT) 645 U/L (16-63) H Alkaline Phosphatase 194 U/L (46-116) H Troponin I High Sensitivity 5 ng/L (4-75) Total Protein 7.8 g/dL (6.4-8.2) Albumin 4.2 g/dL (3.4-5.0) Albumin/Globulin Ratio 1.2 (1.0-1.7) Lipase 51366 U/L (73-393) H Laboratory Tests 12/27/21 08:13 Laboratory Tests 12/27/21 08:13 Vital Signs: Vital Signs Date Time Temp Pulse Resp B/P (MAP) Pulse Ox O2 Delivery O2 Flow Rate FiO2 12/27/21 10:41 75 18 155/94 (114) 100 Room Air 12/27/21 07:54 97.4 97.4 EKG: EKG: Sinus rhythm Radiology/Procedures: Radiology/Procedures: CT scan with pancreatitis KUB x-ray moderate stool Ultrasound limited CBD nondilated, gallstones appreciated, no pericholecystic fluid, no signs of acute cholecystitis Impression: 36-year-old male with cholelithiasis as well as acute pancreatitis, possible choledocholithiasis Course & Med Decision Making: Course & Med Decision Making Pertinent Labs and Imaging studies reviewed. (See chart for details) Patient was given 1 L NS bolus as well as morphine and Dilaudid for pain control. Labs were drawn as well as imaging above. Labs and imaging are consistent with acute pancreatitis as well as cholelithiasis. Choledocholithiasis is a possibility, the stone may have passed a common bile duct. He will be admitted for monitoring, fluids, pain control, and monitoring for resolution of liver and pancreas inflammation. Patient is stable at the time of admission. He is admitted to the service of Dr. Meneses, who agreed with the plan. John Disclaimer: John Disclaimer: This electronic medical record was generated, in whole or in part, using a voice recognition dictation system. Departure Departure Impression: Primary Impression: Cholelithiasis Additional Impression: Acute pancreatitis Disposition: ADMITTED INPATIENT Condition: GOOD Scripts No Active Prescriptions or Reported Meds BRITTANY ESCOBAR MD Dec 27, 2021 11:28
[2021-12-27 12:05] VITALS: BP 144/90
--- NOTE | 2021-12-27 12:19 | NUR ---
Pt. here from ER and placed in bed. Pt. grimacing, rating pain at 8/10. paged for pain meds and admission orders.
[2021-12-27] MEDS ORDERED: ZOLPIDEM 5 MG TABLET. PO PRN (13:15)
[2021-12-27] MEDS ORDERED: DOCUSATE SODIUM 100 MG CAPSULE. PO PRN (13:15)
[2021-12-27] MEDS ORDERED: diphenhydrAMINE HCL 25 MG CAPSULE PO PRN ×2 (13:15)
[2021-12-27] MEDS ORDERED: SENNOSIDES 8.6 MG TABLET PO PRN (13:15)
[2021-12-27] MEDS ORDERED: ONDANSETRON PF 4 MG/2 ML VIAL. IVP PRN (13:15)
[2021-12-27] MEDS ORDERED: HYDROcodone/APAP 5/325MG 1 TAB TABLET PO PRN ×2 (13:15)
[2021-12-27] MEDS ORDERED: DEXTROSE 50% 25 GM / 50ML DISP.SYRIN. IV PRN (13:15)
[2021-12-27] MEDS ORDERED: LORazepam 0.5 MG TABLET PO PRN (13:15)
[2021-12-27] MEDS ORDERED: diphenhydrAMINE 50 MG/ML VIAL IVP PRN (13:15)
[2021-12-27] MEDS ORDERED: PROCHLORPERAZINE 10 MG/2 ML VIAL. IV PRN (13:15)
[2021-12-27] MEDS: IV NORMAL SALINE 1000ML BAG 1,000 ML IV SCH ×3 (13:15→23:18)
[2021-12-27] MEDS ORDERED: MORPHINE SULFATE 2 MG/ML INJ. IV PRN (13:15)
[2021-12-27 13:43] LABS: CHOLESTEROL/HDL RATIO 4.9
[2021-12-27] MEDS: MORPHINE SULFATE 2 MG/ML INJ. IVP PRN ×2 (14:17→19:06)
[2021-12-27] MEDS: ENOXAPARIN 40 MG/0.4 ML SYRINGE. SQ SCH (14:17)
--- NOTE | 2021-12-27 14:26 | PDOC1 ---
History and Physical Date of Service: DOS: DATE: 12/27/21 TIME: 14:20 Chief Complaint: Chief Complain: Abdominal pain History of Present Illness: HPI: 36-year-old male with no significant past medical history except for smoking who comes in with abdominal pain that started this morning that woke him out of sleep. Patient states that he has been having this pain for 2 years on and off and he never had it evaluated for this. Patient describes the pain in his epigastric region 10 out of 10 and radiates to his back. Associated nausea with vomiting in the ED. Bowel movement yesterday morning was normal in stool caliber. Denies any fevers, shortness of breath, hematuria, dysuria, pale stools or bloody stools or bloody diarrhea. Past Medical/Surgical History: PMH/PSH: No significant past medical or surgical history Allergies: Allergies: Coded Allergies: No Known Drug Allergies (Unverified , 02/03/19) Family History: Family History: Reviewed with no relative findings in the chart Social History: Social History: Denies any alcohol, tobacco or drug abuse. Current Medications: Current Medications Current Medications Morphine Sulfate (Morphine Sulfate) 2 mg PRN Q15MIN PRN IV/SQ PAIN GREATER THAN 3/10 Last administered on 12/27/21at 11:36; Start 12/27/21 at 08:15; Stop 12/27/21 at 13:29; Status DC Pantoprazole Sodium (PROTONIX VIAL for IV PUSH) 40 mg 1X ONCE IVP Last administered on 12/27/21at 08:51; Start 12/27/21 at 08:15; Stop 12/27/21 at 08:19; Status DC Multi-Ingredient Mouthwash/Gargle (Gi Cocktail) 20 ml 1X ONCE SWSW Last administered on 12/27/21at 08:51; Start 12/27/21 at 08:15; Stop 12/27/21 at 08:19; Status DC Hydromorphone HCl (Dilaudid) 1 mg 1X ONCE IVP Last administered on 12/27/21at 09:30; Start 12/27/21 at 09:30; Stop 12/27/21 at 09:31; Status DC Sodium Chloride 1,000 ml @ 1,000 mls/hr 1X ONCE IV Last administered on 12/12 03/04at 09:35; Start 12/27/21 at 09:30; Stop 12/27/21 at 10:31; Status DC Ondansetron HCl (Zofran) 4 mg 1X ONCE IVP Last administered on 12/27/21at 09:35; Start 12/27/21 at 09:30; Stop 12/27/21 at 09:31; Status DC Iohexol (Omnipaque 300 Mg/ml) 75 ml 1X ONCE IV Last administered on 12/27/21at 09:30; Start 12/27/21 at 09:30; Stop 12/27/21 at 09:31; Status DC Info (CONTRAST GIVEN -- Rx MONITORING) 1 each PRN DAILY PRN MC SEE COMMENTS; Start 12/27/21 at 09:45; Stop 12/29/21 at 09:44 Sodium Chloride 1,000 ml @ 1,000 mls/hr 1X ONCE IV Last administered on 12/27/21at 11:36; Start 12/27/21 at 11:30; Stop 12/27/21 at 12:29; Status DC Sennosides (Senna) 17.2 mg PRN BID PRN PO CONSTIPATION; Start 12/27/21 at 13:15 Docusate Sodium (Colace) 100 mg PRN DAILY PRN PO HARD STOOLS; Start 12/27/21 at 13:15 Ondansetron HCl (Zofran) 4 mg PRN Q6HRS PRN IVP NAUSEA/VOMITING, 1st CHOICE; Start 12/27/21 at 13:15 Dextrose (Dextrose 50%-Water Syringe) 12.5 gm PRN Q15MIN PRN IV SEE COMMENTS; Start 12/27/21 at 13:15 Sodium Chloride 1,000 ml @ 250 mls/hr Q4H IV Last administered on 12/27/21at 13:15; Start 12/27/21 at 13:15; Stop 12/28/21 at 13:14 Acetaminophen (Tylenol) 650 mg PRN Q4HRS PRN PO TEMP OVER 100.4F OR MILD PAIN; Start 12/27/21 at 13:15 Lorazepam (Ativan) 0.5 mg PRN Q6HRS PRN PO ANXIETY / AGITATION; Start 12/27/21 at 13:15 Lorazepam (Ativan Inj) 0.25 mg PRN Q4HRS PRN IV ANXIETY / AGITATION; Start 12/27/21 at 13:15 Enoxaparin Sodium (Lovenox 40mg Syringe) 40 mg Q24H SQ Last administered on 12/27/21at 14:17; Start 12/27/21 at 14:00 Pantoprazole Sodium (PROTONIX VIAL for IV PUSH) 40 mg DAILYAC IVP ; Start 12/28/21 at 07:30 Acetaminophen/ Hydrocodone Bitart (Lortab 5/325) 1 tab PRN Q4HRS PRN PO MILD PAIN 1-3; Start 12/27/21 at 13:15 Acetaminophen/ Hydrocodone Bitart (Lortab 5/325) 2 tab PRN Q4HRS PRN PO MODERATE PAIN, SEVERE PAIN; Start 12/27/21 at 13:15 Morphine Sulfate (Morphine Sulfate) 1 mg PRN Q1HR PRN IV PAIN; Start 12/27/21 at 13:15 Morphine Sulfate (Morphine Sulfate) 2 mg PRN Q2HR PRN IVP SEVERE PAIN 7-10 Last administered on 12/27/21at 14:17; Start 12/27/21 at 13:15; Stop 12/28/21 at 13:14 Prochlorperazine Edisylate (Compazine) 10 mg PRN Q6HRS PRN IV NAUSEA/VOMITING, 2nd CHOICE; Start 12/27/21 at 13:15 Diphenhydramine HCl (Benadryl) 25 mg PRN Q6HRS PRN IVP ITCHING; Start 12/27/21 at 13:15 Diphenhydramine HCl (Benadryl) 25 mg PRN Q6HRS PRN PO ITCHING; Start 12/27/21 at 13:15 Diphenhydramine HCl (Benadryl) 25 mg PRN QHS PRN PO INSOMNIA, 1st CHOICE; Start 12/27/21 at 13:15 Zolpidem Tartrate (Ambien) 2.5 mg PRN QHS PRN PO INSOMNIA, 2nd CHOICE; Start 12/27/21 at 13:15 Active Scripts Active Reported No Known Medications Prior To Admisstion (Info) Each 1 Each MC DAILY ROS: Review of Systems Review of System REVIEW OF SYSTEMS: GENERAL: Denies weakness SKIN: No bruising, hair changes or rashes. EYES: No blurred, double or loss of vision. NOSE AND THROAT: No history of nosebleeds, hoarseness or sore throat. HEART: No history of palpitations, chest pain or shortness of breath on exertion. LUNGS: Denies cough, hemoptysis, wheezing or shortness of breath. GASTROINTESTINAL: Positive for abdominal pain GENITOURINARY: No history of frequency, urgency, hesitancy or nocturia. NEUROLOGIC: Denies history of numbness, tingling, or tremor. PSYCHIATRIC: No history of panic, anxiety or depression. ENDOCRINE: No history of heat or cold intolerance, polyuria or polydipsia. EXTREMITIES: Denies joint pain, pain on walking or stiffness. Physical Exam: Vital Signs: Vital Signs Date Time Temp Pulse Resp B/P (MAP) Pulse Ox O2 Delivery O2 Flow Rate FiO2 12/27/21 14:17 Room Air 12/27/21 11:36 16 100 12/27/21 10:41 75 155/94 (114) 12/27/21 07:54 97.4 97.4 Physcial Exam: General: Well developed, well nourished, no acute distress, well appearing HEENT: Pupils equally round and reactive to light, EOMI, no discharge, normal conjunctiva Neck: Supple, no nuchal rigidity, no JVD, trachea midline, no tenderness Cardiac: RRR, no murmurs, no gallops, no rubs Chest/Lungs: CTAB, no wheeze, no rhonchi, no crackles Abdomen: soft, non-distended, no guarding, no peritoneal signs, exquisite tenderness upon palpation in epigastric region Back: No tenderness Extremities: no edema, pulses intact, non-tender,capillary refill <3 sec bilateral upper and lower extremities, Neuro: Alert and oriented x 4, no focal deficits, normal speech Labs: Labs: Laboratory Tests Test 12/27/21 08:13 White Blood Count 9.0 x10^3/uL (4.0-11.0) Red Blood Count 4.59 x10^6/uL (4.30-5.70) Hemoglobin 14.2 g/dL (13.0-17.5) Hematocrit 42.6 % (39.0-53.0) Mean Corpuscular Volume 93 fL (79-100) Mean Corpuscular Hemoglobin 31 pg (25-35) Mean Corpuscular Hemoglobin Concent 33 g/dL (31-37) Red Cell Distribution Width 13.5 % (11.5-14.5) Platelet Count 239 x10^3/uL (140-400) Neutrophils (%) (Auto) 71 % (31-73) Lymphocytes (%) (Auto) 19 % (24-48) Monocytes (%) (Auto) 7 % (0-9) Eosinophils (%) (Auto) 2 % (0-3) Basophils (%) (Auto) 0 % (0-3) Neutrophils # (Auto) 6.4 x10^3/uL (1.8-7.7) Lymphocytes # (Auto) 1.7 x10^3/uL (1.0-4.8) Monocytes # (Auto) 0.6 x10^3/uL (0.0-1.1) Eosinophils # (Auto) 0.2 x10^3/uL (0.0-0.7) Basophils # (Auto) 0.0 x10^3/uL (0.0-0.2) Sodium Level 144 mmol/L (136-145) Potassium Level 3.9 mmol/L (3.5-5.1) Chloride Level 103 mmol/L (98-107) Carbon Dioxide Level 32 mmol/L (21-32) Anion Gap 9 (6-14) Blood Urea Nitrogen 19 mg/dL (8-26) Creatinine 1.2 mg/dL (0.7-1.3) Estimated GFR (Cockcroft-Gault) 68.5 BUN/Creatinine Ratio 16 (6-20) Glucose Level 118 mg/dL (70-99) Calcium Level 9.6 mg/dL (8.5-10.1) Total Bilirubin 0.9 mg/dL (0.2-1.0) Aspartate Amino Transf (AST/SGOT) 679 U/L (15-37) Alanine Aminotransferase (ALT/SGPT) 645 U/L (16-63) Alkaline Phosphatase 194 U/L (46-116) Troponin I High Sensitivity 5 ng/L (4-75) Total Protein 7.8 g/dL (6.4-8.2) Albumin 4.2 g/dL (3.4-5.0) Albumin/Globulin Ratio 1.2 (1.0-1.7) Triglycerides Level 79 mg/dL (0-150) Cholesterol Level 178 mg/dL (0-200) LDL Cholesterol, Calculated 126 mg/dL (0-100) VLDL Cholesterol, Calculated 16 mg/dL (0-40) Non-HDL Cholesterol Calculated 142 mg/dL (0-129) HDL Cholesterol 36 mg/dL (40-60) Cholesterol/HDL Ratio 4.9 Lipase 88721 U/L (73-393) Laboratory Tests Test 12/27/21 08:13 White Blood Count 9.0 x10^3/uL (4.0-11.0) Red Blood Count 4.59 x10^6/uL (4.30-5.70) Hemoglobin 14.2 g/dL (13.0-17.5) Hematocrit 42.6 % (39.0-53.0) Mean Corpuscular Volume 93 fL (79-100) Mean Corpuscular Hemoglobin 31 pg (25-35) Mean Corpuscular Hemoglobin Concent 33 g/dL (31-37) Red Cell Distribution Width 13.5 % (11.5-14.5) Platelet Count 239 x10^3/uL (140-400) Neutrophils (%) (Auto) 71 % (31-73) Lymphocytes (%) (Auto) 19 % (24-48) Monocytes (%) (Auto) 7 % (0-9) Eosinophils (%) (Auto) 2 % (0-3) Basophils (%) (Auto) 0 % (0-3) Neutrophils # (Auto) 6.4 x10^3/uL (1.8-7.7) Lymphocytes # (Auto) 1.7 x10^3/uL (1.0-4.8) Monocytes # (Auto) 0.6 x10^3/uL (0.0-1.1) Eosinophils # (Auto) 0.2 x10^3/uL (0.0-0.7) Basophils # (Auto) 0.0 x10^3/uL (0.0-0.2) Sodium Level 144 mmol/L (136-145) Potassium Level 3.9 mmol/L (3.5-5.1) Chloride Level 103 mmol/L (98-107) Carbon Dioxide Level 32 mmol/L (21-32) Anion Gap 9 (6-14) Blood Urea Nitrogen 19 mg/dL (8-26) Creatinine 1.2 mg/dL (0.7-1.3) Estimated GFR (Cockcroft-Gault) 68.5 BUN/Creatinine Ratio 16 (6-20) Glucose Level 118 mg/dL (70-99) Calcium Level 9.6 mg/dL (8.5-10.1) Total Bilirubin 0.9 mg/dL (0.2-1.0) Aspartate Amino Transf (AST/SGOT) 679 U/L (15-37) Alanine Aminotransferase (ALT/SGPT) 645 U/L (16-63) Alkaline Phosphatase 194 U/L (46-116) Troponin I High Sensitivity 5 ng/L (4-75) Total Protein 7.8 g/dL (6.4-8.2) Albumin 4.2 g/dL (3.4-5.0) Albumin/Globulin Ratio 1.2 (1.0-1.7) Triglycerides Level 79 mg/dL (0-150) Cholesterol Level 178 mg/dL (0-200) LDL Cholesterol, Calculated 126 mg/dL (0-100) VLDL Cholesterol, Calculated 16 mg/dL (0-40) Non-HDL Cholesterol Calculated 142 mg/dL (0-129) HDL Cholesterol 36 mg/dL (40-60) Cholesterol/HDL Ratio 4.9 Lipase 47057 U/L (73-393) Images: Images PROCEDURE: CT ABD PELV W/ IV CONTRST ONLY CT ABDOMEN+PELVIS W History: Choledocholithiasis. Comparison: Ultrasound right upper quadrant 12/27/2021. Technique: CT of the abdomen and pelvis with intravenous contrast. Note patient vomited during the initial scan. Portions of the lower abdomen and pelvis were repeated due to motion artifact. Findings: The lung bases are clear. The liver and gallbladder are unremarkable. Gallstones noted on comparison ultrasound not well identified by CT. The distal common bile duct measures 5-6 mm. There is peripancreatic fat edema. The spleen is unremarkable. The adrenal glands and kidneys are normal. The stomach and small bowel are normal. Normal appendix. Colon is unremarkable. Bladder and pancreas are within normal limits. Vasculature is unremarkable. No adenopathy. Soft tissues and osseous structures are within normal limits. Impression: 1. Diffuse peripancreatic fat inflammatory changes consistent with acute interstitial pancreatitis. PROCEDURE: ABDOMEN LTD Exam performed: Limited right upper quadrant sonogram. Indication: Epigastric pain Date of Service: 12/27/2021 . Comparison:None available Technique: Real-time grayscale imaging of the right upper abdomen is performed and images are obtained. Findings: The study is very limited due to overlying bowel gas and patient movement during scanning due to extreme pain. The liver is normal in size and echogenicity without focal lesions. It measures 16.7 cm in length. No intra or extrahepatic biliary ductal dilatation is seen. The common bile duct measures 3.0 mm. The gallbladder contains numerous shadowing calculi. No evidence of gallbladder wall thickening or pericholecystic fluid seen. Right kidney measures 10.2 x 4.4 x 4.6 cm. There is no hydronephrosis or nephrolithiasis. Impression: 1. Limited exam. Cholelithiasis without sonographic evidence of acute cholecystitis. PROCEDURE: KUB EXAMINATION: Abdominal radiograph. VIEWS: Single supine view the abdomen COMPARISON: None INDICATION: 36 years, Male, epigastric pain. FINDINGS: Nonobstructive bowel gas pattern. Moderate colonic stool content. No gross pneumoperitoneum.No abnormal intra-abdominal calcifications. Lung bases are not well-visualized. No acute process process. IMPRESSION: Nonobstructive bowel gas pattern. Moderate colonic stool content. Correlate with symptoms of constipation. Assessment/Plan Assessment/Plan Acute pancreatitis, unclear etiology Transaminitis Admit to hospitalist service for further management Clear liquid diet advance as tolerated Continue IV fluids aggressive, 250 cc/h for at least 24 hours then decrease to 150 Strict I's/O monitor urine output Serial abdominal exams Pending urine tox screen Pending hepatitis panel Consider GI consult if no improvement Lovenox for DVT prophylaxis Protonix GI prophylaxis CODE STATUS full Discussed with RN and SW Disposition inpatient management as above DPOA: Brother Justifications for Admission Other Justification Acute pancreatitis RAQUEL SCHREIBER MD Dec 27, 2021 14:26
[2021-12-27 15:00] VITALS: BP 134/89
[2021-12-27 16:17] LABS: BARBITURATES NEG (NEG); BENZODIAZEPINES NEG (NEG); CANNABINOIDS NEG (NEG); COCAINE NEG (NEG); METHADONE NEG (NEG); OPIATES POS (NEG); PHENCYCLIDINE NEG (NEG)
[2021-12-27 16:25] LABS: AMPHETAMINE/METHAMPHETAMINE POS (NEG)
[2021-12-27 19:00] VITALS: BP 145/93
--- NOTE | 2021-12-27 22:10 | NUR ---
Dr. Meneses returned a page confirming Fluids infusion rate of 250mL/Hr.
[2021-12-27 23:00] VITALS: BP 148/92
[2021-12-28] MEDS: MORPHINE SULFATE 2 MG/ML INJ. IVP PRN (02:18)
[2021-12-28 03:00] VITALS: BP 146/89
[2021-12-28] MEDS: IV NORMAL SALINE 1000ML BAG 1,000 ML IV SCH ×3 (03:19→09:15)
[2021-12-28 06:22] VITALS: BP 122/78
[2021-12-28 07:36] LABS: BASO % 0 % (0-3); EOS # 0.1 x10^3/uL (0.0-0.7); EOS % 2 % (0-3); HEMATOCRIT 38.7 % (39.0-53.0); HEMOGLOBIN 12.7 g/dL (13.0-17.5); LYMPH # 1.5 x10^3/uL (1.0-4.8); LYMPH % 25 % (24-48); MEAN CORPUSCULAR HEMOGLOBIN 31 pg (25-35); MEAN CORPUSCULAR HGB CONC 33 g/dL (31-37); MEAN CORPUSCULAR VOLUME 94 fL (79-100); MONO # 0.3 x10^3/uL (0.0-1.1); MONO % 6 % (0-9); NEUT # 3.8 x10^3/uL (1.8-7.7); NEUT % 66 % (31-73); PLATELET COUNT 198 x10^3/uL (140-400); RED BLOOD COUNT 4.14 x10^6/uL (4.30-5.70); RED CELL DISTRIBUTION WIDTH 13.5 % (11.5-14.5); WHITE BLOOD COUNT 5.7 x10^3/uL (4.0-11.0)
[2021-12-28 07:53] LABS: CALCIUM 8.2 mg/dL (8.5-10.1); CREATININE 0.8 mg/dL (0.7-1.3); GFR 109.4; MAGNESIUM 1.9 mg/dL (1.8-2.4); PHOSPHORUS 2.8 mg/dL (2.6-4.7)
[2021-12-28] MEDS: PANTOPRAZOLE IV PUSH 40 MG VIAL. IVP SCH (08:39)
[2021-12-28 11:00] VITALS: BP 133/80
--- NOTE | 2021-12-28 13:15 | PDOC ---
[employer] PROGRESS NOTE Date of Service DOS: DATE: 12/28/21 TIME: 13:14 Chief Complaint Chief Complaint Acute pancreatitis - likely amphetamine induced. RUQ US ok Transaminitis Amphetamine use disorder - in [facility] IOP Admit to hospitalist service for further management Clear liquid diet advance as tolerated Continue IV fluids aggressive, 250 cc/h for at least 24 hours then decrease to 125 Strict I's/O monitor urine output Serial abdominal exams Pending urine tox screen Pending hepatitis panel Consider GI consult if no improvement Lovenox for DVT prophylaxis Protonix GI prophylaxis CODE STATUS full Discussed with RN and SW Disposition inpatient management as above DPOA: Brother History of Present Illness History of Present Illness 36-year-old male with no significant past medical history except for smoking who comes in with abdominal pain that started this morning that woke him out of sleep. Patient states that he has been having this pain for 2 years on and off and he never had it evaluated for this. Patient describes the pain in his epigastric region 10 out of 10 and radiates to his back. Associated nausea with vomiting in the ED. Bowel movement yesterday morning was normal in stool caliber. Denies any fevers, shortness of breath, hematuria, dysuria, pale stools or bloody stools or bloody diarrhea. 12/28: Still with significant pain though he is asking for food. Counseled on methamphetamine induced pancreatitis given his highly elevated lipase and LFTs would slowly advance diet. He notes he is in IOP at [facility]. Vitals/I&O Vitals/I&O: Vital Signs Date Time Temp Pulse Resp B/P (MAP) Pulse Ox O2 Delivery O2 Flow Rate FiO2 12/28/21 11:00 98.3 75 16 133/80 (97) 97 Room Air 98.3 I & O 12/27/21 12/27/21 12/28/21 15:00 23:00 07:00 Intake Total 1000 ml 480 ml 3605 ml Output Total 500 ml Balance 1000 ml -20 ml 3605 ml Physical Exam General: Alert, Cooperative Lungs: Clear Labs Labs: Laboratory Tests Test 12/27/21 15:30 12/28/21 07:20 Urine Opiates Screen Pos (NEG) Urine Methadone Screen Neg (NEG) Urine Barbiturates Neg (NEG) Urine Phencyclidine Screen Neg (NEG) Urine Amphetamine/Methamphetamine Pos (NEG) Urine Benzodiazepines Screen Neg (NEG) Urine Cocaine Screen Neg (NEG) Urine Cannabinoids Screen Neg (NEG) Urine Ethyl Alcohol Neg (NEG) White Blood Count 5.7 x10^3/uL (4.0-11.0) Red Blood Count 4.14 x10^6/uL (4.30-5.70) Hemoglobin 12.7 g/dL (13.0-17.5) Hematocrit 38.7 % (39.0-53.0) Mean Corpuscular Volume 94 fL (79-100) Mean Corpuscular Hemoglobin 31 pg (25-35) Mean Corpuscular Hemoglobin Concent 33 g/dL (31-37) Red Cell Distribution Width 13.5 % (11.5-14.5) Platelet Count 198 x10^3/uL (140-400) Neutrophils (%) (Auto) 66 % (31-73) Lymphocytes (%) (Auto) 25 % (24-48) Monocytes (%) (Auto) 6 % (0-9) Eosinophils (%) (Auto) 2 % (0-3) Basophils (%) (Auto) 0 % (0-3) Neutrophils # (Auto) 3.8 x10^3/uL (1.8-7.7) Lymphocytes # (Auto) 1.5 x10^3/uL (1.0-4.8) Monocytes # (Auto) 0.3 x10^3/uL (0.0-1.1) Eosinophils # (Auto) 0.1 x10^3/uL (0.0-0.7) Basophils # (Auto) 0.0 x10^3/uL (0.0-0.2) Sodium Level 139 mmol/L (136-145) Potassium Level 4.0 mmol/L (3.5-5.1) Chloride Level 105 mmol/L (98-107) Carbon Dioxide Level 28 mmol/L (21-32) Anion Gap 6 (6-14) Blood Urea Nitrogen 8 mg/dL (8-26) Creatinine 0.8 mg/dL (0.7-1.3) Estimated GFR (Cockcroft-Gault) 109.4 Glucose Level 82 mg/dL (70-99) Calcium Level 8.2 mg/dL (8.5-10.1) Phosphorus Level 2.8 mg/dL (2.6-4.7) Magnesium Level 1.9 mg/dL (1.8-2.4) Assessment and Plan Assessmemt and Plan Problems Medical Problems: (1) Acute pancreatitis Status: Acute (2) Cholelithiasis Status: Acute Comment Review of Relevant I have reviewed the following items alonso (where applicable) has been applied. Medications: Current Medications Medications (Trade) Dose Ordered Sig/Pierre Route PRN Reason Start Time Stop Time Status Last Admin Dose Admin Sodium Chloride 1,000 ml @ 250 mls/hr Q4H IV 12/27/21 13:15 12/28/21 13:14 DC 12/28/21 08:39 Enoxaparin Sodium (Lovenox 40mg Syringe) 40 mg Q24H SQ 12/27/21 14:00 12/27/21 14:17 Pantoprazole Sodium (PROTONIX VIAL for IV PUSH) 40 mg DAILYAC IVP 12/28/21 07:30 12/28/21 08:39 Morphine Sulfate (Morphine Sulfate) 2 mg PRN Q2HR PRN IVP SEVERE PAIN 7-10 12/27/21 13:15 12/28/21 13:14 DC 12/28/21 02:18 Justifications for Admission Other Justification Acute pancreatitis MINA RAMIRES MD Dec 28, 2021 13:14
[2021-12-28] MEDS: ENOXAPARIN 40 MG/0.4 ML SYRINGE. SQ SCH (14:25)
[2021-12-28 15:00] VITALS: BP 124/77
[2021-12-28] MEDS ORDERED: IV NORMAL SALINE 1000ML BAG 1,000 ML IV ONE (16:00)
[2021-12-28 19:00] VITALS: BP 129/79
[2021-12-28 23:00] VITALS: BP 128/80
[2021-12-29] MEDS: ACETAMINOPHEN 325 MG TABLET. PO PRN ×2 (00:05→08:24)
[2021-12-29 03:00] VITALS: BP 133/82
[2021-12-29 03:52] LABS: BASO % 0 % (0-3); EOS # 0.2 x10^3/uL (0.0-0.7); EOS % 3 % (0-3); HEMATOCRIT 36.5 % (39.0-53.0); HEMOGLOBIN 12.5 g/dL (13.0-17.5); LYMPH # 2.1 x10^3/uL (1.0-4.8); LYMPH % 31 % (24-48); MEAN CORPUSCULAR HEMOGLOBIN 32 pg (25-35); MEAN CORPUSCULAR HGB CONC 34 g/dL (31-37); MEAN CORPUSCULAR VOLUME 92 fL (79-100); MONO # 0.5 x10^3/uL (0.0-1.1); MONO % 8 % (0-9); NEUT # 3.8 x10^3/uL (1.8-7.7); NEUT % 58 % (31-73); PLATELET COUNT 210 x10^3/uL (140-400); RED BLOOD COUNT 3.96 x10^6/uL (4.30-5.70); RED CELL DISTRIBUTION WIDTH 13.1 % (11.5-14.5); WHITE BLOOD COUNT 6.5 x10^3/uL (4.0-11.0)
[2021-12-29 04:11] LABS: ALBUMIN 3.2 g/dL (3.4-5.0); CALCIUM 8.6 mg/dL (8.5-10.1); CREATININE 0.8 mg/dL (0.7-1.3); DIRECT BILIRUBIN 0.1 mg/dL (0.0-0.2); GFR 109.4; MAGNESIUM 1.9 mg/dL (1.8-2.4); POTASSIUM 3.7 mmol/L (3.5-5.1); TOTAL BILIRUBIN 0.4 mg/dL (0.2-1.0); TOTAL PROTEIN 6.7 g/dL (6.4-8.2)
[2021-12-29 07:30] VITALS: BP 127/83
[2021-12-29] MEDS: PANTOPRAZOLE IV PUSH 40 MG VIAL. IVP SCH (08:23)
--- NOTE | 2021-12-29 09:56 | EKG ---
[facility] [address] [place] [address] Test Date: 2021-12-27 Test Time: 08:58:19 Pat Name: VÍCTOR MULLIGAN Department: Room: [facility] Gender: M [employer]: : 1985 Requested By: BRITTANY Partida Number: [id number] Reading MD: Sujit Milner Measurements Intervals [place] Rate: 74 P: 46 TX: 180 QRS: 89 QRSD: 92 T: 54 QT: 364 QTc: 404 Interpretive Statements SINUS RHYTHM Electronically Signed On 12-31-2021 18:47:25 CDT by Sujit Milner
[2021-12-29 11:04] VITALS: BP 144/86
--- NOTE | 2021-12-29 12:02 | PDOC ---
[employer] PROGRESS NOTE Date of Service DOS: DATE: 12/29/21 TIME: 12:01 Chief Complaint Chief Complaint Acute pancreatitis - likely amphetamine induced. RUQ US ok Transaminitis Amphetamine use disorder - in [facility] IOP Admit to hospitalist service for further management Clear liquid diet advance as tolerated Continue IV fluids aggressive, 250 cc/h for at least 24 hours then decrease to 125 Strict I's/O monitor urine output Serial abdominal exams Pending urine tox screen Pending hepatitis panel Consider GI consult if no improvement Lovenox for DVT prophylaxis Protonix GI prophylaxis CODE STATUS full Discussed with RN and SW Disposition inpatient management as above DPOA: Brother History of Present Illness History of Present Illness 12/29/2021 Patient seen and examined Discussed with RN Chart reviewed He would like to be discharged as he has court later today 36-year-old male with no significant past medical history except for smoking who comes in with abdominal pain that started this morning that woke him out of sleep. Patient states that he has been having this pain for 2 years on and off and he never had it evaluated for this. Patient describes the pain in his epigastric region 10 out of 10 and radiates to his back. Associated nausea with vomiting in the ED. Bowel movement yesterday morning was normal in stool caliber. Denies any fevers, shortness of breath, hematuria, dysuria, pale stools or bloody stools or bloody diarrhea. 12/28: Still with significant pain though he is asking for food. Counseled on methamphetamine induced pancreatitis given his highly elevated lipase and LFTs would slowly advance diet. He notes he is in IOP at [facility]. Vitals/I&O Vitals/I&O: Vital Signs Date Time Temp Pulse Resp B/P (MAP) Pulse Ox O2 Delivery O2 Flow Rate FiO2 12/29/21 11:04 98.6 71 20 144/86 (105) 99 Room Air 98.6 I & O 12/28/21 12/28/21 12/29/21 15:00 23:00 07:00 Intake Total 240 ml 480 ml 875 ml Output Total 1000 ml 300 ml Balance 240 ml -520 ml 575 ml Physical Exam General: Alert, Cooperative Lungs: Clear Labs Labs: Laboratory Tests Test 12/29/21 02:50 12/29/21 02:52 Sodium Level 140 mmol/L (136-145) Potassium Level 3.7 mmol/L (3.5-5.1) Chloride Level 105 mmol/L (98-107) Carbon Dioxide Level 27 mmol/L (21-32) Anion Gap 8 (6-14) Blood Urea Nitrogen 6 mg/dL (8-26) Creatinine 0.8 mg/dL (0.7-1.3) Estimated GFR (Cockcroft-Gault) 109.4 Glucose Level 91 mg/dL (70-99) Calcium Level 8.6 mg/dL (8.5-10.1) Magnesium Level 1.9 mg/dL (1.8-2.4) Total Bilirubin 0.4 mg/dL (0.2-1.0) Direct Bilirubin 0.1 mg/dL (0.0-0.2) Aspartate Amino Transf (AST/SGOT) 163 U/L (15-37) Alanine Aminotransferase (ALT/SGPT) 494 U/L (16-63) Alkaline Phosphatase 202 U/L (46-116) Total Protein 6.7 g/dL (6.4-8.2) Albumin 3.2 g/dL (3.4-5.0) Lipase 2754 U/L (73-393) White Blood Count 6.5 x10^3/uL (4.0-11.0) Red Blood Count 3.96 x10^6/uL (4.30-5.70) Hemoglobin 12.5 g/dL (13.0-17.5) Hematocrit 36.5 % (39.0-53.0) Mean Corpuscular Volume 92 fL (79-100) Mean Corpuscular Hemoglobin 32 pg (25-35) Mean Corpuscular Hemoglobin Concent 34 g/dL (31-37) Red Cell Distribution Width 13.1 % (11.5-14.5) Platelet Count 210 x10^3/uL (140-400) Neutrophils (%) (Auto) 58 % (31-73) Lymphocytes (%) (Auto) 31 % (24-48) Monocytes (%) (Auto) 8 % (0-9) Eosinophils (%) (Auto) 3 % (0-3) Basophils (%) (Auto) 0 % (0-3) Neutrophils # (Auto) 3.8 x10^3/uL (1.8-7.7) Lymphocytes # (Auto) 2.1 x10^3/uL (1.0-4.8) Monocytes # (Auto) 0.5 x10^3/uL (0.0-1.1) Eosinophils # (Auto) 0.2 x10^3/uL (0.0-0.7) Basophils # (Auto) 0.0 x10^3/uL (0.0-0.2) Assessment and Plan Assessmemt and Plan Problems Medical Problems: (1) Acute pancreatitis Status: Acute (2) Cholelithiasis Status: Acut Plan Discharged See dictation Comment Review of Relevant I have reviewed the following items alonso (where applicable) has been applied. Medications: Current Medications Medications (Trade) Dose Ordered Sig/Pierre Route PRN Reason Start Time Stop Time Status Last Admin Dose Admin Sodium Chloride 1,000 ml @ 125 mls/hr 1X ONCE IV 12/28/21 16:00 12/28/21 23:59 DC 12/28/21 16:39 Justifications for Admission Other Justification Acute pancreatitis GEOVANY KENNEDY III DO Dec 29, 2021 12:02
--- NOTE | 2021-12-29 13:15 | NUR ---
Patient discharged home, escorted out by charge nurse. Had a friend pick him up.
--- NOTE | 2021-12-29 21:02 | DS ---
DATE OF DISCHARGE: 12/29/2021 ADMITTING DIAGNOSIS: Pancreatitis and methamphetamine abuse. DISCHARGE DIAGNOSIS: Resolving pancreatitis, we suspect secondary to methamphetamine abuse. HOSPITAL COURSE: The patient is a pleasant middle-aged male who presented with pancreatitis, was on methamphetamine. We gave him pancreatitis protocol including IV fluids and pain meds and n.p.o. Today, I saw and examined him. He is doing better. He is tolerating food. He wants to go home. We plan to discharge. DISPOSITION: Home. ACTIVITY: As tolerated. DIET: Low sodium. DISCHARGE MEDICATIONS: Please see the MRAD. TOTAL TIME: [address]: Krystal TID: [id number]
== END 2021-12-29 13:15 | disposition still patient (30) | DRG 440 ==
LOC: ER 07:50 → 4 NORTH 11:50
PROVIDERS: ADMIT Internal Medicine; ATTEND Internal Medicine
DX: K85.90 Acute pancreatitis without necrosis or infection, unspecified (principal); K80.70 Calculus of gallbladder and bile duct without cholecystitis without obstruction; F15.10 Other stimulant abuse, uncomplicated; Z87.891 Personal history of nicotine dependence; R74.01 Elevation of levels of liver transaminase levels
CPT/HCPCS: 36415; 74018; 74177; 76705; 80048; 80053; 80061; 80076; 80307; 83690; 83735; 84100; 84484; 85025; 86705; 86709; 86803; 87340; 93005; 96361; 96374; 96375; C9113; J1170; J1650; J2270; J2405; J7030; Q9967; 99285-25; G0378